=== PATIENT | female | born 1955 | race Caucasian/White ===

== ENCOUNTER 2022-02-15 04:08 | Emergency (ER) | payer MEDICARE, SELFPAY ==
[2022-02-15 04:08] VITALS: BP 150/88; PULSE 109; RESP 17; TEMP 37; O2SAT 97
[2022-02-15 04:09] VITALS: BP 150/88; TEMP 37; BMI 25.9
--- NOTE | 2022-02-15 04:18 | CT_ITS ---
STUDY: CT ABDOMEN AND PELVIS WITH CONTRAST REASON FOR EXAM: Female, 66 years old. RLQ pain RADIATION DOSAGE (If Supplied By Facility): CTDIvol = ( 12.49 ) mGy, DLP = ( 58460.31 ) mGycm TECHNIQUE: Transaxial 3.75 mm abdominal and delayed images were obtained from the dome of the diaphragm to the symphysis pubis without oral contrast. IV 100mL Isovue-370 was administered. Sagittal and coronal images were reconstructed. Individualized dose optimization techniques were used for this CT. COMPARISON: None. FINDINGS: Nonspecific mild compression of left basilar parenchyma. The visualized portions of the heart are within normal limits. Few millimeter low attenuation in the right and left hepatic lobes are too small to characterize without change on delayed imaging. Prominent proximal extrahepatic biliary ductal system of up to 1.1 cm tapering to normal size at the pancreas head level. No choledocholithiasis detected. Mild distention of gallbladder. Normal spleen. Normal pancreas. Normal bilateral adrenal glands. Moderate right hydronephrosis and hydroureter tapering to near-normal size along the distal ureter. There is wall prominence at the UVJ level. A calculus is not visualized. Punctate nonobstructing left inferior renal pole calculus. Normal visualized stomach. Normal small intestine. There are significant sigmoid and descending colonic diverticula consistent with diverticulosis. The appendix is visualized and appears normal. There is diffuse atherosclerotic calcification of the abdominal aorta, without a demonstrated aneurysm. Normal inferior vena cava. Normal retroperitoneum. Posterior right urinary bladder wall thickening up to 1.1 cm at the UVJ level. No evidence of ureterocele There is a pessary. Bilateral fallopian tube clips. There is a small umbilical hernia containing fat. There are diffuse degenerative changes of the visualized lumbar spine. Dextroscoliosis of the lower thoracic spine. Incompletely imaged thoracolumbar fusion. Grade 1 anterolisthesis L4 on L5. CT/Abdomen/Pelvis W IV Cont ONLY IMPRESSION: Moderate right hydronephrosis and hydroureter without obstructing ureteral calculus. There is wall thickening at the right UVJ level of the posterior right urinary bladder wall. Cystoscopy and possible tissue sampling recommended. Small nonobstructing left inferior renal pole calculus. Probable hepatic cyst, too small to characterize. Atherosclerosis, fat-containing umbilical hernia, colonic diverticulosis, degenerative and postsurgical changes as above. There is no appendicitis, colitis, diverticulitis, ascites, abscess, collection, perforation or obstruction. Electronically Signed: Estela Pollock MD at 6:50 EDT Reading Location ID and State: / , Service support ,
--- NOTE | 2022-02-15 04:19 | EDS_ITS ---
HPI History of Present Illness Chief Complaint: Abd Pain Informant: patient Narrative Narrative: Patient has had lower abdominal pain for about 5 hours. She states she woke up at about 11:00. She did not notice pain at first but then she noticed pain across her lower abdomen. It was both sides. But over the next 4 or so hours it moved toward the right lower quadrant. She had some nausea and diarrhea but no vomiting. No blood in the stool. She had some subjective fevers but no measured fever. No back or flank pain. She took Tylenol and it is feeling better. Her nausea is now gone. She had no urinary symptoms. Only abdominal surgery was tubal ligation years ago. PFSH PFSH Home Medications alendronate 70 mg PO DAILY 02/15/22 [History Last Taken Unknown] atorvastatin 10 mg DAILY 02/15/22 [History Last Taken Unknown] cephalexin 500 mg PO Q6 #40 cap 02/15/22 [Rx Last Taken Unknown] levothyroxine 88 mcg DAILY 02/15/22 [History Last Taken Unknown] Allergy/AdvReac Type Severity Reaction Status Date / Time No Known Allergies Allergy Verified 02/15/22 04:11 Social History Smoking Status: Never smoker ROS ROS ED Constitutional Constitutional ED: Reports subjective ENT ENT ED: Denies rhinorrhea or sore throat Cardiovascular Cardiovascular: Denies chest pain or palpitations Respiratory/Chest Respiratory/Chest: Denies cough or dyspnea Gastrointestinal Gastrointestinal: Reports abdominal pain, diarrhea and nausea Genitourinary Genitourinary ED: Denies dysuria or hematuria Musculoskeletal Musculoskeletal: Denies back pain or neck pain Integumentary Denies rash Neurologic Neurologic: Denies headache(s) or paresthesias Endocrine Endocrinology: Denies polydipsia or polyuria Allergic/Immunologic Allergic/Immunologic ED: Denies urticaria EXAM Physical Exam Const Vital Signs: 02/15/22 04:08 02/15/22 04:09 02/15/22 06:28 Temperature 98.6 F 98.6 F Temperature Source Temporal Temporal Pulse Rate 109 H 74 Respiratory Rate 17 17 Blood Pressure 150/88 H 150/88 H 125/73 H Blood Pressure Mean 108 108 90 Pulse Ox 97 98 Oxygen Delivery Method Room Air Room Air Positive well nourished and well developed General Appearance ED: well developed and NAD; Negative for cyanotic or diaphoretic HEENT Reports moist mucous membranes Eyes General Eye ED: Negative for pale conjunctiva or scleral icterus Neck no JVD Chest Wall inspection of chest normal Resp normal respiratory effort and clear to auscultation bilaterally Cardio regular rate, regular rhythm and no murmurs GI normal to inspection, nondistended, normoactive bowel sounds and non-distended GI Narrative: Minimal tenderness toward the right lower quadrant but no rebound or guarding. Palpation: soft Back/Spine no CVA tenderness Extremity normal to inspection General Extremety ED: Negative for edema or tenderness General Extremity: Negative for edema Neuro Sensorium / Orientation: alert Psych mental status grossly normal Skin no rashes or lesions noted MDM MDM MDM Narrative Medical decision making narrative: Patient's labs show normal CBC. Electrolytes liver function test are overall unremarkable. Glucose is minimally elevated. Urine was rather cloudy. It had positive nitrites. 100 leukocyte Estrace. Red cells. Had a smaller but still abnormal number of white cells and 3+ bacteria. Patient does admit that her urine has been a lot stronger especially in the morning recently but she does not have dysuria. She states she feels well now. She is not having any of the discomfort. Her CT scan showed some thickening of the bladder and moderate hydronephrosis on the right likely caused by this thickened area and delaying emptying. I explained these findings to the sampson ent. I explained that we will get her on antibiotics for possible UTI. I will send off a urine culture. But even if her symptoms completely resolved she needs to see urologist. She will likely need a cystoscopy and biopsies done. It is possible that this is an early bladder cancer and this needs to be followed up even if she has resolution of symptoms. Lab Data Attestation: I reviewed the patient's lab results. Labs: Laboratory Results - last 24 hr 02/15/22 02/15/22 02/15/22 04:12 04:12 04:42 WBC 9.5 RBC 4.56 Hgb 13.9 Hct 41.6 MCV 91.2 MCH 30.5 MCHC 33.4 RDW Std Deviation 41.7 RDW Coeff of Andrés 12.5 Plt Count 207 MPV 10.4 Immature Gran % (Auto) 0.300 Neut % (Auto) 86.6 H Lymph % (Auto) 7.1 L Hardin % (Auto) 5.6 Eos % (Auto) 0.1 Baso % (Auto) 0.3 Absolute Neuts (auto) 8.2 H Absolute Lymphs (auto) 0.67 L Nucleated RBC % 0 Sodium 138 Potassium 3.5 Chloride 105 Carbon Dioxide 28.0 Anion Gap 5 BUN 14 Creatinine 0.78 Estim Creat Clear Calc 45.78 Est GFR (MDRD) Af Amer 95 Est GFR (MDRD) Non-Af 78 BUN/Creatinine Ratio 17.9 Glucose 133 H Calcium 9.3 Total Bilirubin 1.00 AST 26 ALT 35 Alkaline Phosphatase 65 Total Protein 7.7 Albumin 4.3 Globulin 3.4 Albumin/Globulin Ratio 1.3 Urine Color Yellow Urine Clarity Sl. Cloudy Urine pH 6.0 Ur Specific Shubuta 1.015 Urine Protein Negative Urine Glucose (UA) Normal Urine Ketones 50 H Urine Occult Blood 150 H Urine Nitrite Positive H Urine Bilirubin Negative Urine Urobilinogen Normal Ur Leukocyte Esterase 100 H Urine RBC 10-25 SEEN Urine WBC 5-10 SEEN Ur Squamous Epith Cells 0-5 SEEN Urine Bacteria 3+ Urine Mucus 0 SEEN Radiography Diagnostic Testing: Clinical Impression(s) from Imaging Studies Abdomen/Pelvis CT 02/15/22 04:18 IMPRESSION: Moderate right hydronephrosis and hydroureter without obstructing ureteral calculus. There is wall thickening at the right UVJ level of the posterior right urinary bladder wall. Cystoscopy and possible tissue sampling recommended. Small nonobstructing left inferior renal pole calculus. Probable hepatic cyst, too small to characterize. Atherosclerosis, fat-containing umbilical hernia, colonic diverticulosis, degenerative and postsurgical changes as above. There is no appendicitis, colitis, diverticulitis, ascites, abscess, collection, perforation or obstruction. Electronically Signed: Estela Pollock MD at 6:50 EDT Reading Location ID and State: , Service support , Discharge Plan Triage Chief Complaint: Abd Pain ED Provider: Samm Moreira Dx/Rx/DC Orders Clinical Impression: Abdominal pain, Hydronephrosis, right, Bladder wall thickening, Acute UTI Instructions: ED Hematuria, ED CYSTITIS Female Adult Prescriptions: New cephalexin [cephalexin] 500 MG capsule 500 mg PO Q6 Qty: 40 RF: 0 No Action atorvastatin 10 mg tablet 10 mg DAILY RF: 0 alendronate 70 mg tablet 70 mg PO DAILY RF: 0 levothyroxine 88 mcg tablet 88 mcg DAILY RF: 0 Primary Care Provider: Yousif Ross Referrals: Yousif Ross MD [Primary Care Provider] - Sunita Gillespie MD [STAFF PHYSICIAN] - 3-5 Days Disposition Disposition: Home, Self Care
[2022-02-15 04:47] LABS: Absolute Lymphocyte Count 0.67 X10^3/uL (0.83-4.51); Absolute Neutrophil Count 8.2 X10^3/uL (2.0-7.7); Basophil# 0.03 X10^3/uL; Basophil% 0.3 % (0-1); Eosinophil# 0.01 X10^3/uL; Eosinophils% 0.1 % (0-5); Hematocrit 41.6 % (37-47); Hemoglobin 13.9 g/dL (12.0-15.0); Lymphocyte # 0.67 X10^3/ul (0.83-4.51); Lymphocyte % 7.1 % (19-41); Mean Corp Hgb Conc 33.4 g/dL (32-36); Mean Corpuscular Hgb 30.5 pg (27.0-32.0); Mean Corpuscular Volume 91.2 fL (81-99); Mean Platelet Vol. 10.4 fl (6.2-12.0); Monocyte# 0.53 X10^3/uL; Monocyte% 5.6 % (0-10); NRBC Flagged by Analyzer 0 % (0-5); Neutrophil # 8.18 X10^3/uL (2.7-7.7); Neutrophil % 86.6 % (47-70); Platelet Count 207 K/mm3 (150-450); RBC Distribution Width CV 12.5 % (11.6-14.6); RBC Distribution Width SD 41.7 fl (35.1-43.9); Red Blood Count 4.56 M/mm3 (4.2-5.4); White Blood Count 9.5 K/mm3 (4.4-11.0)
[2022-02-15 04:49] LABS: Color, Urine Yellow (Yellow); Glucose, Dipstick Normal (Normal); Ketone-Dipstick 50 mg/dl (Negative); Leukocyte Esterase-Dipstick 100 /ul (Negative); Nitrite-Dipstick Positive (Negative); Occult Blood-Urine 150 /ul (Negative); Protein-Dipstick Negative (Negative); Specific Gravity, Urine 1.015 (1.002-1.030); Urine Bilirubin Dipstick Negative (Negative); Urine Clarity Sl. Cloudy (Clear); Urine Urobilinogen Normal (Normal)
[2022-02-15 04:50] LABS: Mucous, Urine 0 SEEN /hpf (<or=2+)
[2022-02-15 05:02] LABS: ALB/GLOB Ratio 1.3 RATIO (0.9-2.4); AST(SGOT) 26 U/L (15-37); Alanine Aminotransfer ALT/SGPT 35 U/L (13-56); Albumin, Serum 4.3 g/dL (3.2-5.0); Alkaline Phosphatase 65 U/L (45-117); Anion Gap 5 (5-15); BUN 14 mg/dL (7-18); BUN/Creat Ratio 17.9 RATIO (10-20); Calcium,Total 9.3 mg/dL (8.5-10.1); Chloride 105 mmol/L (98-107); Creatinine, Serum 0.78 mg/dL (0.55-1.02); EST Glomerular Filtration Rate 78 mL/min (>60); Est Glom Filt Rate - Afr Amer 95 mL/min (>60); Estimated Creatinine Clearance 45.78 ml/min; Globulin 3.4 g/dL (2.2-4.2); Glucose 133 mg/dL (74-106); Potassium 3.5 mmol/L (3.5-5.1); Protein, Total 7.7 g/dL (6.4-8.2); Sodium Level 138 mmol/L (136-145)
[2022-02-15 05:11] LABS: Red Blood Cells-Urine 10-25 SEEN /hpf (0-5)
[2022-02-15 05:12] LABS: Bacteria 3+ /hpf (None Seen); Squamous Epithelial Cells - UA 0-5 SEEN /hpf (5-10); White Blood Cells 5-10 SEEN /hpf (0-5)
[2022-02-15 06:28] VITALS: BP 125/73; PULSE 74; RESP 17; O2SAT 98
[2022-02-15] MEDS: Cephalexin 250 MG Capsule 500 MG PO (07:15)
== END 2022-02-15 07:23 | disposition home or self-care (01) ==
PROVIDERS: Emergency Provider Emergency Medicine; PCP Family Medicine; Visit Provider Emergency Medicine
DX: N13.30 Unspecified hydronephrosis (principal); R10.30 Lower abdominal pain, unspecified; N39.0 Urinary tract infection, site not specified; Z79.899 Other long term (current) drug therapy
CPT/HCPCS: 74177; 80053; 81001; 85025; 87086; 87088; 87186; 96360; 96361; 99284; J7030; Q9967; A4216

== ENCOUNTER → 2022-03-15 | Outpatient (CLI) | payer MEDICARE, SELFPAY ==
--- NOTE | 2022-03-15 10:54 | NM_ITS ---
CLINICAL: Female, 66 years old. R HYDROURETERONEPHROSIS NUCLEAR RENAL SCAN without with IV Lasix TECHNIQUE: Following the intravenous administration of 10.2 mCi of Tc MAG3, immediate flow imaging, and static delayed nephrogram images of the kidneys were obtained. 20 mg IV Lasix given at 21 minutes. COMPARISON STUDIES : NM - None. CR - Not available for review at this time. CT - 02/15/2022 MR - Not available for review at this time. US - Not available for review at this time. FINDINGS: Initial imaging demonstrates symmetric flow to the bilateral kidneys. Split function measures 39% on the right and 61% on the left. Continued accumulation of isotope activity of the bilateral kidneys prior to IV Lasix with relatively flattened renogram curves on both sides, more conspicuous on the right than the left. However, following Lasix, there is normal, expected excretion with downward trending renogram curve. NM/Renal Scan w/ Pharm Intervent IMPRESSION: 1. Relative preservation of bilateral renal parenchymal function. Patulous but nonobstructive right kidney. Normal physiologic response to IV Lasix. Electronically Signed: Antwon Cárdenas MD ([place]) at 12:14 EDT ,
== END | disposition home or self-care (01) ==
LOC: NM 10:53
PROVIDERS: PCP Family Medicine; Referring Provider Urology; Visit Provider Urology
DX: N13.4 Hydroureter (principal)
CPT/HCPCS: 78708; A9562; J1940

== ENCOUNTER 2022-04-15 08:04 | Day surgery (SDC) | payer MEDICARE, BC, SELFPAY ==
[2022-04-15 08:36] VITALS: BP 146/71; PULSE 71; RESP 18; TEMP 36.1; O2SAT 99; BMI 24.3
[2022-04-15] MEDS: Lactated Ringers 1,000 ML 15 ML IV (08:44)
[2022-04-15] MEDS: Cefazolin 2 GM in 0.9% Normal Saline 100 ML IV (09:09)
--- NOTE | 2022-04-15 09:54 | DCINST_ITS ---
Discharge Instructions Diet Discharge Diet: No restrictions Activity Discharge Activity: Return to Normal Activity Dressing / Incision Call your doctor if you observe: Fever of 101 or Higher, Inability to urinate and Inability to have a bowel movement Follow Up Care Please Follow Up With: Sunita Gillespie MD When: Call office for appointment Test Results: Test results from this visit will be discussed in further detail at your follow- up appointment, if applicable. Discharge Plan Admission Attending Provider: Sunita Gillespie Primary Care Provider: Yousif Ross Discharge Orders/Prescriptions Prescriptions: New oxycodone-acetaminophen [Percocet] 5-325 mg tablet 1 tab PO Q8H PRN (Reason: pain) 2 Days Qty: 10 0RF Continued atorvastatin 10 mg tablet 10 mg PO QHS Label Comments: TAKE 1 TABLET BY MOUTH ONCE DAILY AT BEDTIME FOR CHOLESTEROL alendronate 70 mg tablet 70 mg PO QWEEK levothyroxine 88 mcg tablet 88 mcg PO QHS oxyquinoline-boric acid 0.025 % Gel 1 ea VAGINAL QMONTH cephalexin 500 mg capsule 500 mg PO BID Label Comments: TAKE 1 CAPSULE BY MOUTH EVERY 6 HOURS Referrals / Follow Up: Yousif Ross MD [Primary Care Provider] - Disposition Disposition (needs filled in before D/C Order can be placed): Home, Self Care
--- NOTE | 2022-04-15 09:58 | OP.PCM_ITS ---
Report of Operation Date of Procedure: 04/15/22 Pre-Operative Diagnosis: Right hydronephrosis, abnormal findings on imaging of genitourinary organs Post-Operative Diagnosis: Same Surgery/Procedure Performed:: Cystoscopy, right retrograde pyelogram, right ureteroscopy diagnostic Surgeon: Sunita Gillespie Type of Anesthesia: General Description of Procedure: The patient is a 66-year-old female who was found to have a hydronephrosis and possible thickening of the distal right ureter. She presents for direct visualization of the right collecting system. Informed consent has been obtained. The patient was taken to the operating room placed on the operating room table. Anesthesia monitored the head, neck, IV access and vital signs throughout the case. Once anesthesia was appropriate ministered, the patient was placed into dorsolithotomy position and was prepped and draped in usual sterile fashion. The cystoscope was inserted through the urethra under direct visualization and the mucosa in its entirety was visualized and found to be normal. An 8 [place] [employer] cone-tip catheter was used to gently cannulate the right ureteral orifice and contrast was injected in retrograde fashion under fluoroscopic visualization revealing no filling defects. The ureter however was tortuous. At this time an 0.035 Glidewire was inserted through the ureteral orifice and advanced into the renal pelvis without difficulty. A flexible ureteroscope was inserted over the Glidewire. The ureteroscope was only able to be advanced to distal ureter. At this time the semirigid ureteroscope was obtained and more proximal access was achieved. There were no mucosal abnormalities identified from the proximal ureter down to the bladder. At this time the ureteroscope was removed under direct visualization. The patient's bladder was emptied and the case was terminated. The patient was awakened and taken to the recovery room in good condition. There were no complications during this procedure. Grafts/Implants Used: None Complications None Admit VTE Documentation VTE Present on Admission: Yes VTE Mechan Device Prophylaxis: SCD's VTE Pharm Prophylaxis ordered?: No Reason prophylaxis not ordered:: Treatment Not Indicated
[2022-04-15 10:45] VITALS: BP 146/71; BP 91/60; PULSE 64; RESP 16; TEMP 36.2; O2SAT 93
[2022-04-15 11:00] VITALS: BP 120/73; BP 146/71; PULSE 69; RESP 16; O2SAT 96
[2022-04-15 11:15] VITALS: BP 116/85; BP 146/71; PULSE 66; RESP 16; TEMP 36.3; O2SAT 98
[2022-04-15 12:15] VITALS: BP 130/66; BP 146/71; PULSE 76; RESP 18; TEMP 36.3; O2SAT 95
== END 2022-04-15 12:25 | disposition home or self-care (01) ==
LOC: SDC 08:10 → AC 08:10
PROVIDERS: PCP Family Medicine; Referring Provider Urology; Visit Provider Urology
PROC: 0TJ98ZZ Inspection of Ureter, Via Natural or Artificial Opening Endoscopic (ICD-10-PCS; CPT 52352; principal; 2022-04-15 09:30)
DX: N13.30 Unspecified hydronephrosis (principal); N13.8 Other obstructive and reflux uropathy; N81.2 Incomplete uterovaginal prolapse; E78.5 Hyperlipidemia, unspecified; E07.9 Disorder of thyroid, unspecified; M19.90 Unspecified osteoarthritis, unspecified site; Z78.0 Asymptomatic menopausal state; Z87.891 Personal history of nicotine dependence; Z79.890 Hormone replacement therapy; Z79.899 Other long term (current) drug therapy
CPT/HCPCS: 52351; 00910; 76000; J7120; J2405

== ENCOUNTER → 2022-09-13 | Outpatient (CLI) | payer MEDICARE, BC, SELFPAY ==
--- NOTE | 2022-09-13 12:42 | US_ITS ---
STUDY: RENAL ULTRASOUND - COMPLETE REASON FOR EXAM: Female, 67 years old. Flank pain, fever TECHNIQUE: Ultrasound evaluation of the kidneys was performed with real-time and static huitron-scale imaging. Study limited due to overlying bowel gas COMPARISON: None. FINDINGS: RIGHT KIDNEY: Normal location of the right kidney, which is normal in size for age. The right kidney measures 8.5 x 5.2 x 3.9 cm. There is a normal cortex of the right kidney for age. The renal cortex measures 0.7 cm. There is no right renal mass or cyst. There are no right renal calculi. There is no demonstrated hydronephrosis, however, the study is limited and hydronephrosis could be present and overlooked by ultrasound DISTAL RIGHT URETER: There is non-visualization of the distal right ureter. There is no demonstrated right ureterovesical junction calculus. There is a visualized right ureteral jet. LEFT KIDNEY: Normal location of the left kidney, which is normal in size. The left kidney measures 9.5 x 6.0 x 4.2 cm. There is a normal cortex of the left kidney. The renal cortex measures 0.9 cm. There is no left renal mass or cyst. There are no left renal calculi. There is no left hydronephrosis. DISTAL LEFT URETER: There is non-visualization of the distal left ureter. There is no demonstrated left ureterovesical junction calculus. There is a visualized left ureteral jet. AORTA: There is no elongation or tortuosity of the abdominal aorta. I.V.C.: The IVC is patent. BLADDER: The bladder is sonographically normal with estimated capacity of 358 mL US/Kidney and Bladder IMPRESSION: No suspicious sonographic findings. However, study is limited and right-sided hydronephrosis cannot be excluded Electronically Signed: Billy Vasquez MD at 13:41 EST ,
== END | disposition home or self-care (01) ==
LOC: NM 12:40 → US 12:42
PROVIDERS: PCP Family Medicine; Referring Provider Urology; Visit Provider Urology
DX: N13.30 Unspecified hydronephrosis (principal)
CPT/HCPCS: 76770

== ENCOUNTER → 2022-10-25 | Outpatient (CLI) | payer MEDICARE, BC, SELFPAY ==
[2022-10-25 15:49] LABS: Anion Gap 7 (5-15); BUN 12 mg/dL (7-18); BUN/Creat Ratio 15.6 RATIO (10-20); Calcium,Total 9.9 mg/dL (8.5-10.1); Chloride 104 mmol/L (98-107); Creatinine, Serum 0.77 mg/dL (0.55-1.02); EST Glomerular Filtration Rate 80 mL/min (>60); Est Glom Filt Rate - Afr Amer 96 mL/min (>60); Glucose 98 mg/dL (74-106); Potassium 4.2 mmol/L (3.5-5.1); Sodium Level 141 mmol/L (136-145)
== END | disposition home or self-care (01) ==
LOC: MTLAB 11:37
PROVIDERS: PCP Family Medicine; Referring Provider Urology; Visit Provider Urology
DX: N13.30 Unspecified hydronephrosis (principal)
CPT/HCPCS: 36415; 80048

== ENCOUNTER → 2023-02-02 | Outpatient (CLI) | payer MEDICARE, BC, SELFPAY ==
--- NOTE | 2023-02-02 10:46 | US_ITS ---
STUDY: RENAL ULTRASOUND - COMPLETE REASON FOR EXAM: Female, 67 years old. Right-sided hydronephrosis. TECHNIQUE: Ultrasound evaluation of the kidneys was performed with real-time and static huitron-scale imaging. COMPARISON: Renal ultrasound, September 13, 2022. FINDINGS: RIGHT KIDNEY: Normal location of the right kidney, which is normal in size. The right kidney measures 9.8 cm. Prominent column of Enzo There is diffuse thinning of the renal cortex. The renal cortex measures 0.6 cm. There is a 2.3 x 2.4 x 2.0 cm simple cyst in the lower pole. There are no right renal calculi. There is moderate hydronephrosis of the right kidney. DISTAL RIGHT URETER: There is non-visualization of the distal right ureter. There is no demonstrated right ureterovesical junction calculus. There is a visualized right ureteral jet. LEFT KIDNEY: Normal location of the left kidney, which is normal in size. The left kidney measures 9.4 cm. There is a normal cortex of the left kidney. The renal cortex measures 0.9 cm. There is no left renal mass or cyst. There are no left renal calculi. There is no left hydronephrosis. DISTAL LEFT URETER: There is non-visualization of the distal left ureter. There is no demonstrated left ureterovesical junction calculus. There is a visualized left ureteral jet. BLADDER: The distended urinary bladder has a volume of 386 ml. . There is a normal wall thickness of the distended urinary bladder. There is no demonstrated mass within the urinary bladder. There are no demonstrated bladder calculi. US/Kidney and Bladder IMPRESSION: 1. Moderate right hydronephrosis. The right ureteral jet is noted. 2. Otherwise normal complete retroperitoneal ultrasound. Electronically Signed: Zev Wooten DO at 19:00 EDT Reading Location ID and State: [address] [place] [address] Tel [phone], Service support ,
== END | disposition home or self-care (01) ==
LOC: US 10:44
PROVIDERS: PCP Family Medicine; Referring Provider Urology; Visit Provider Urology
DX: N13.30 Unspecified hydronephrosis (principal)
CPT/HCPCS: 76770

== ENCOUNTER → 2023-02-08 | Outpatient (CLI) | payer MEDICARE, BC, SELFPAY ==
[2023-02-08 10:49] LABS: Anion Gap 4 (5-15); BUN 10 mg/dL (7-18); BUN/Creat Ratio 13.3 RATIO (10-20); Calcium,Total 9.6 mg/dL (8.5-10.1); Chloride 105 mmol/L (98-107); Creatinine, Serum 0.75 mg/dL (0.55-1.02); EST Glomerular Filtration Rate 81 mL/min (>60); Est Glom Filt Rate - Afr Amer 99 mL/min (>60); Glucose 113 mg/dL (74-106); Potassium 4.3 mmol/L (3.5-5.1); Sodium Level 138 mmol/L (136-145)
== END | disposition home or self-care (01) ==
LOC: MTLAB 08:43
PROVIDERS: PCP Family Medicine; Referring Provider Urology; Visit Provider Urology
DX: N13.30 Unspecified hydronephrosis (principal)
CPT/HCPCS: 36415; 80048

== ENCOUNTER → 2023-11-03 | Outpatient (CLI) | payer MEDICARE, BC, SELFPAY ==
--- NOTE | 2023-11-03 07:26 | US_ITS ---
STUDY: RENAL ULTRASOUND - COMPLETE REASON FOR EXAM: Female, 68 years old. HYDRONEPHROSIS TECHNIQUE: Ultrasound evaluation of the kidneys was performed with real-time and static huitron-scale imaging. COMPARISON: Comparison is made with prior study dated February 02, 2023. FINDINGS: RIGHT KIDNEY: Normal location of the right kidney, which is normal in size. The right kidney measures 9.6 cm x 3.5 cm x 3.8 cm. There is a normal cortex of the right kidney. The renal cortex measures 1.0 cm. There is a 2.2 cm x 2 cm x 1.1 cm renal cyst. There are no right renal calculi. Mild to moderate degree of right hydronephrosis. DISTAL RIGHT URETER: There is non-visualization of the distal right ureter. There is no demonstrated right ureterovesical junction calculus. There is a visualized right ureteral jet. LEFT KIDNEY: Normal location of the left kidney, which is normal in size. The left kidney measures 8.9 cm x 5.3 cm x 4.1 cm. There is a normal cortex of the left kidney. The renal cortex measures 1.4 cm. There is no left renal mass or cyst. There are no left renal calculi. There is no left hydronephrosis. DISTAL LEFT URETER: There is non-visualization of the distal left ureter. There is no demonstrated left ureterovesical junction calculus. There is a visualized left ureteral jet. BLADDER: The distended urinary bladder has a volume of 196 ml. There is a normal wall thickness of the distended urinary bladder. There is no demonstrated mass within the urinary bladder. There are no demonstrated bladder calculi. US/Kidney and Bladder IMPRESSION: Mild to moderate degree of right hydronephrosis. Stable right renal cyst. Electronically Signed: Daryn Iniguez MD at 15:31 EST ,
--- OUTSIDE RECORDS SUMMARY | 2023-11-03 07:31 | XMS RPT_ITS | CCD ---
Author Name Unknown Address [address] [place] [address] Organization [facility] Care Team Providers Care Research Computing Specialist Name Role Phone Dianne Ross MD Primary Care Provider DIANNE ROSS Referring Unavailab DIANNE Olivo Primary Care Unavailab DIANNE Olivo Primary Care Unavailab DIANNE Olivo Referring Unavailab DIANNE Olivo Attending DIANNE Garcia Primary Care Unavailab DIANNE Olivo Referring Unavailab le MALIK, KAROLINA Referring Unavailable DIANNE ROSS Primary Care Unavailab le MALIK, KAROLINA Referring Unavailable SHARON KAROLINA Attending Unavailable DIANNE ROSS Primary Care Unavailab le PODLOGAARTI ALONSO Attending DIANNE Sevilla Primary Care Unavailab le Medications Current Medications Medication Drug Class(es) Dates Sig (Normalized) Sig (Original) alendronic acid 70 mg oral tablet (20 sources) Bisphosphonate Start: 09-10-2021 End: 12-24-2023 take 1 tablet by mouth every week alendronate (FOSAMAX) 70 mg tablet Take 1 tablet by mouth one time a week. Take with a full glass of water, on an empty stomach; do NOT lie down for 30minutes. 12 tablet 1 06/27/2023 12/24/2023 Active Completed/Discontinued Medications Medication Drug Class(es) Dates Sig (Normalized) Sig (Original) atorvastatin 10 mg oral tablet (20 sources) HMG-CoA Reductase Inhibitor Start: 06-27-2023 take 1 tablet by mouth once daily atorvastatin (LIPITOR) 10 mg tablet Indications: Hyperlipidemia with target LDL less than 130 Take 1 tablet by mouth once daily. 90 tablet 1 06/27/2023 Active Problems Active Problems Problem Classification Problem Date Documented Date Episodic/Chronic Administrative/social admission (1 source) Advance directive discussed with patient; Translations: [Other specified counseling] Episodic Cardiac dysrhythmias (1 source) Finding related to awareness of heart beat; Translations: [Palpitations] Episodic Disorders of lipid metabolism (20 sources) Hyperlipidemia; Translations: [Hyperlipidemia, unspecified] Onset: 05-28-2011 09-04-2018 Chronic Immunizations and screening for infectious disease (3 sources) Vaccination needed; Translations: [Encounter for immunization] Episodic Menopausal disorders (1 source) Atrophic vaginitis; Translations: [Postmenopausal atrophic vaginitis] 06-21-2023 Chronic Osteoarthritis (18 sources) Degenerative joint disease of hand; Translations: [Unilateral primary osteoarthritis of first carpometacarpal joint, right hand] Onset: 09-04-2018 09-04-2018 Chronic Osteoporosis (19 sources) Osteoporosis; Translations: [Age-related osteoporosis without current pathological fracture] Onset: 05-09-2010 05-09-2010 Chronic Other bone disease and musculoskeletal deformities (18 sources) Idiopathic scoliosis of thoracic spine; Translations: [Other idiopathic scoliosis, thoracic region] 11-04-2015 Chronic Other diseases of bladder and urethra (1 source) Hypertrophy of bladder; Translations: [Other specified disorders of bladder] Chronic Other diseases of kidney and ureters (2 sources) Hydronephrosis; Translations: [Unspecified hydronephrosis] Episodic Other screening for suspected conditions (not mental disorders or infectious disease) (2 sources) Patient encounter status; Translations: [Encounter for screening mammogram for malignant neoplasm of breast] Onset: 08-16-2023 08-13-2022 Episodic Prolapse of female genital organs (1 source) Midline cystocele; Translations: [Cystocele, midline] 06-21-2023 Chronic Rehabilitation care; fitting of prostheses; and adjustment of devices (1 source) Patient encounter status; Translations: [Encounter for fitting and adjustment of other specified devices] 06-21-2023 Chronic Thyroid disorders (20 sources) Hypothyroidism; Translations: [Hypothyroidism, unspecified] Onset: 03-21-2006 11-04-2015 Chronic Past or Other Problems Problem Classification Problem Date Documented Da te Episodic/Chronic Diabetes mellitus without complication (19 sources) Impaired fasting glycemia; Translations: [Impaired fasting glucose] Onset: 06-17-2020 06-17-2020 Episodic Fluid and electrolyte disorders (2 sources) Hyperkalemia; Translations: [Hyperkalemia] Onset: 09-24-2022 Episodic Other diseases of kidney and ureters (1 source) Unspecified hydronephrosis; Translations: [Hydronephrosis, right] Onset: 09-22-2022 Episodic Other non-traumatic joint disorders (18 sources) Pain in right hip joint; Translations: [Pain in right hip] Onset: 01-08-2019 01-08-2019 Episodic Residual codes; unclassified (18 sources) Family history of malignant neoplasm of breast in first degree relative; Translations: [Family history of malignant neoplasm of breast] Onset: 11-23-2013 11-23-2013 Episodic Results Test Name Value Interpretation Reference Range Facil ity Vital Signs Date Time Vital Sign Value Performing Clinician Sharath alexander 06-21-2023 11:16-0400 Body weight 64.41 kg Karolina Malik APRN.[employer] Work Phone: [facility] 06-21-2023 11:16-0400 Diastolic blood pressure 70 mm[Hg] Karolina Malik APRN.[employer] Work Phone: [facility] 06-21-2023 11:16-0400 Systolic blood pressure 138 mm[Hg] Karolina Malik APRN.[employer] Work Phone: [facility] 09-22-2022 08:42-0500 Body weight 67.13 kg Dianne Ross MD Work Phone: [facility] 09-22-2022 08:42-0500 Diastolic blood pressure 80 mm[Hg] Dianne Ross MD Work Phone: [facility] 09-22-2022 08:42-0500 Heart rate 72 /min Dianne Ross MD Work Phone: [facility] 09-22-2022 08:42-0500 Respiratory rate 16 /min Dianne Ross MD Work Phone: [facility] 09-22-2022 08:42-0500 SaO2% (BldA) [Mass fraction] 97 % Dianne Ross MD Work Phone: [facility] 09-22-2022 08:42-0500 Systolic blood pressure 132 mm[Hg] Dianne Ross MD Work Phone: [facility] 03-17-2022 09:08-0400 Body temperature 98.6 [degF] Dianne Ross MD Work Phone: [facility] 03-17-2022 09:08-0400 Body weight 64.41 kg Dianne Ross MD Work Phone: [facility] 03-17-2022 09:08-0400 Diastolic blood pressure 80 mm[Hg] Dianne Ross MD Work Phone: [facility] 03-17-2022 09:08-0400 Heart rate 72 /min Dianne Ross MD Work Phone: [facility] 03-17-2022 09:08-0400 Respiratory rate 14 /min Dianne Ross MD Work Phone: [facility] 03-17-2022 09:08-0400 Systolic blood pressure 118 mm[Hg] Dianne Ross MD Work Phone: [facility] Encounters Encounter Date Encounter Type Care Provider Facility Start: 08-16-2023 End: 08-16-2023 ambulatory KAROLINA MALIK Facility:[facility] Start: 07-21-2023 Refill Dianne Ross MD Work Phone: [facility] Procedures Date Procedure Procedure Detail Performing Clinician Start: 06-21-2023 INFLUENZA VACCINE, P RSV FREE, AGE 65+ YR, HIGH DOSE, QUADRIVALENT (FLUZONE HIGH-DOSE) Karolina Malik APRN.[employer] Work Phone: Start: 09-22-2022 Lipid 1996 panel - S gideon or Plasma Karolina Malik APRN.[employer] Work Phone: Start: 08-13-2022 End: 08-13-2022 Rosy Shafer APRN. [employer] Work Phone: Start: 03-17-2022 PFIZER-YandexNTTenasiTech COVI D-19 VACCINE, AGE 12+ YR (HARVEY TOP) Dianne Ross MD Work Phone: Start: 03-17-2022 Adult depression scr eening assessment Dianne Ross MD Work Phone: Start: 08-13-2021 Mammography [facility] Provid er Start: 12-23-2020 Adult depression scr eening assessment [facility] Provider Start: 09-09-2020 Colonoscopy [facility] Provid er Plan of Treatment Date Care Activity Detail Author Start: 09-23-2031 Urine microalbumin profile [facility] Start: 09-09-2030 Colonoscopy COLONOSCOPY [facility] Start: 09-09-2030 COLORECTAL CANCER SCREENING COLORECTAL CANCER SCREENING [facility] Start: 09-22-2027 Lipid 1996 panel - S gideon or Plasma Lipid Screening [facility] Start: 09-22-2027 LIPID SCREEN LIPID SCREEN [facility] Start: 04-07-2026 LIPID SCREEN LIPID SCREEN [facility] Start: 09-22-2025 DIABETES SCREEN DIABETES SCREEN [facility] Start: 09-22-2025 Diabetes Screening Diabetes Screenin g [facility] Start: 03-12-2025 DIABETES SCREEN DIABETES SCREEN [facility] Start: 03-22-2024 Annual PCP Team Director Of Residence Life mark Disease Visit Annual PCP Team Chronic Disease Visit [facility] Start: 12-25-2023 DIABETES SCREEN DIABETES SCREEN [facility] Start: 09-22-2023 ANNUAL PCP TEAM CHILD CARE TEAM LEAD MARK DISEASE VISIT ANNUAL PCP TEAM CHRONIC DISEASE VISIT [facility] Start: 09-22-2023 COVID-19 VACCINE (5 - Booster for Pfizer series) COVID-19 VACCINE (5 - Booster for Pfizer series) [facility] Immunizations Immunization Date Immunization Notes Care Provider Fa delicia 06-21-2023 influenza (HD-IIV4) vaccine, age 65+ yr, high dose, quadrivalent, PF (FLUZONE HIGH-DOSE) Karolina Malik APRN.[facility] Work Phone: [facility] Work Phone: 06-08-2022 influenza, high-dose , quadrivalent vaccine (FLUZONE HIGH DOSE QUADRIVALENT) Tony Perez APRN.[employer], DNP Work Phone: [facility] Work Phone: 03-17-2022 COVID-19 vaccine, ag e 12+ yr (PFIZER-BIONTECH - HARVEY TOP) Dianne Ross MD Work Phone: [facility] 03-17-2022 pneumococcal (PCV20) vaccine, 20 valent (PREVNAR 20) Dianne Ross MD Work Phone: [facility] 03-17-2022 pneumococcal Conjuga te, unspecified formulation Dianne Ross MD Work Phone: [facility] Work Phone: 12-01-2021 zoster vaccine recombinant [facility] Provider [facility] 09-23-2021 tetanus toxoid, redu michelle diphtheria toxoid, and acellular pertussis vaccine, adsorbed [facility] Provider [facility] 09-23-2021 zoster vaccine recombinant [facility] 07-14-2021 COVID-19 vaccine, ag e 12+ yr (PFIZER-BIONTECH - PURPLE TOP) [facility] Provider [facility] Work Phone: 05-27-2021 influenza, high-dose , quadrivalent vaccine (FLUZONE HIGH DOSE QUADRIVALENT) [facility] Provider [facility] 12-05-2020 COVID-19 vaccine, ag e 12+ yr (PFIZER-BIONTECH - PURPLE TOP) f Provider [facility] 11-14-2020 COVID-19 vaccine, ag e 12+ yr (PFIZER-BIONTECH - PURPLE TOP) f Provider [facility] Work Phone: 06-02-2020 influenza, injectabl e, quadrivalent, contains preservative [facility] 06-08-2019 influenza, injectabl e, quadrivalent, contains preservative [facility] 06-03-2018 influenza, injectabl e, quadrivalent, contains preservative [facility] 05-18-2017 influenza, injectabl e, quadrivalent, contains preservative f [facility] Work Phone: 03-09-2017 pneumococcal polysaccharide vaccine, 23 valent [facility] Provider [facility] 03-09-2017 zoster vaccine, live [facility] Provider [facility] 07-05-2016 influenza, seasonal, injectable [facility] Provider [facility] Work Phone: 07-01-2015 influenza, injectabl e, quadrivalent, contains preservative f Provider [facility] Work Phone: 06-21-2014 influenza, seasonal, injectable [facility] Provider [facility] 06-19-2013 influenza virus vaccine, unspecified formulation [facility] Provider [facility] 05-28-2011 tetanus toxoid, redu michelle diphtheria toxoid, and acellular pertussis vaccine, adsorbed [facility] Provider [facility] 06-26-2009 influenza virus vaccine, unspecified formulation [facility] Provider [facility] Work Phone: 07-11-2008 influenza virus vaccine, unspecified formulation [facility] Provider [facility] 07-11-2007 influenza virus vaccine, unspecified formulation [facility] 06-17-1997 diphtheria and tetan us toxoids, adsorbed for pediatric use [facility] Work Phone: 12-03-1976 diphtheria and tetan us toxoids, adsorbed for pediatric use [facility] Work Phone: Payers Date Payer Category Payer Medicare [id number] 2020 Medicare MEDICARE MEDICAR E A AND B [id number] 2020-Present [phone] [address] [place] [id number] Medicare [id number] 2020 Medicare MEDICARE MEDICAR E A AND B [id number] 2020-Present [phone] [place] [address] Medicare [id number] 2020 Medicare [id number] Social History Date Type Detail Facility Start: 06-19-2013 End: 06-08-2022 Tobacco smoking status NHIS Ex-smoker [facility] Start: 09-16-2021 End: 06-21-2023 Alcohol intake Current drinker of alcohol (finding) [facility] Start: 12-23-2020 End: 03-17-2022 History SDOH Alcohol Frequency 98 [facility] Start: 03-12-2021 History SDOH Alcohol Comment rare, less than yearly [facility] Start: 12-23-2020 History SDOH Social Connections Phone 5 [facility] Start: 12-23-2020 History SDOH Social Connections Membership 2 [facility] Start: 12-23-2020 End: 03-17-2022 History SDOH Social Connections Living 3 [facility] Start: 12-23-2020 History SDOH Physica l Activity DPW 7 [facility] Start: 12-23-2020 History SDOH Stress 1 [facility] Start: 12-23-2020 History SDOH Financial 4 [facility] Start: 12-23-2020 Education 14 [facility] Start: 06-15-2007 End: 06-08-2022 Tobacco Comment quit smoking 1988 [facility] Start: 1955 Sex Assigned At Female C [facility] Start: 03-07-2022 End: 03-17-2022 Exposure to SARS-CoV-2 (event) Not sure [facility] History of tobacco use Current smoker [facility] History of tobacco use Cigarette Smoker C [facility] Start: 06-19-2013 End: 03-20-2023 Cigarettes smoked current (pack per day) - Reported 0.5 [facility] Start: 06-19-2013 End: 06-08-2022 Tobacco use and exposure Smokeless tobacco non-user [facility] Start: 09-22-2022 End: 03-20-2023 Social connection and isolation panel [facility] In a typical week, h ow many times do you talk on the telephone with family, friends, or neighbors? Patient refused [facility] Are you now , , , , never or living with a partner? [facility] Do you feel stress - tense, restless, nervous, or anxious, or unable to sleep at night because your mind is troubled all the time - these days [OSQ] Not at all [facility] (I/We) worried servando er (my/our) food would run out before (I/we) got money to buy more. Never true [facility] In the past 12 month s, was there a time when you were not able to pay the mortgage or rent on time? No [facility] Start: 08-06-2020 Sexual orientation Choose not to dis close [facility] Are you now , , , , never or living with a partner? Refused [facility] (I/We) worried wheth er (my/our) food would run out before (I/we) got money to buy more. DK or Refused [facility] Clinical Notes 11-23-2013 to 08-16-2023 Telephone Encounter - Cathryn Samuels LPN - 07/21/2023 1:49 PM ESTTelephone Encounter - Cathryn Samuels LPN - 06/27/2023 2:54 PM Karolina Gee APRN.[employer] - 06/21/2023 11:10 AM EDT Note Date & Type Note Facility 08-16-2023 Note HNO ID: [id number] Author: Flaquita Hare Mammo Tech Service: ? Author Type: Tree Surgeon Helper Type: Progress Notes Filed: 08/16/2023 7:36 AM Note Text: Radiology Service Progress Note PATIENT NAME: Jenny Pacheco DATE OF SERVICE: August 16, 2023 TIME: 7:08 AM PATIENT IDENTITY VERIFICATION COMPLETED USING TWO (2) IDENTIFIERS: Name and Date of confirmed by patient verbally. FALL SCREENING: Has the patient had 2 falls in the last year or 1 fall with injury or currently using an Ambulatory Assistive Device (Walker, Cane, Wheelchair, Crutches, etc.)? No PATIENT GENDER DATA: Female. status: : No status: NO. PATIENT RELEVANT IMPLANT DATA REVIEWED: Not Applicable RADIOLOGY DEPARTMENT: Mammography PERIPHERAL IV DATA: Not applicable SIGNED BY: Esteban Fermin August 16, 2023 7:08 AM [facility] 07-21-2023 Miscellaneous Notes [facility]-03/22/23 Labs-09/24/22 NOV-12/27/23 Cathryn Samuels LPN documented in this encounter [facility] 06-27-2023 Miscellaneous Notes Patient phones requesting refills as follows: Requested Prescriptions Pending Prescriptions Disp Refills alendronate (FOSAMAX) 70 mg tablet 12 tablet 1 Sig: Take 1 tablet by mouth one time a week. Take with a full glass of water, on an empty stomach; do NOT lie down for 30minutes. [facility]-03/22/23 Labs-09/24/22Jul-12/27/23 Please review and advise. Cathryn Samuels LPN documented in this encounter [facility] 06-27-2023 Miscellaneous Notes Patient phones requesting refills as follows: Requested Prescriptions Pending Prescriptions Disp Refills atorvastatin (LIPITOR) 10 mg tablet 90 tablet 1 Sig: Take 1 tablet by mouth once daily. [facility]-03/22/23 Labs-09/24/22Jul-12/27/23 Please review and advise. Cathryn Samuels LPN documented in this encounter [facility] 06-21-2023 Note HNO ID: [id number] Author: Karolina Malik APRN.[employer] Service: ? Author Type: Nurse Practitioner Type: Progress Notes Filed: 06/21/2023 11:52 AM Note Text: Director Of Student Life offered: Patient declines. Jenny Pacheco is a 67 year old who presents today for pessary insertion/cleaning. She wears a size 4 ring with knob pessary. She returns today with no complaints. She has not had problems with the pessary. She has not had vaginal discharge. She has not had vaginal bleeding. She removes and cleans using Trimo-gastelum for insertion every 2 months. Using vaginal hyaluronic acid suppositories twice a week. EXAM: pleasant, well developed, well nourished, in no apparent distress Pelvic: Bartholin's, urethra and Jones's glands were normal. The size 4 ring with knob pessary. pessary was removed. Vaginal exam indicated no erythema, no ulcerations, and no vaginal discharge. The pessary was cleaned and reinserted without difficulty using Trimo-gastelum ASSESSMENT/PLAN: 1. Pessary maintenance - ICD9: V53.99, ICD10: Z46.89 (primary diagnosis) The pessary was cleaned and reinserted without difficulty using Trimo-gastelum 2. Cystocele, midline - ICD9: 618.01, ICD10: N81.11 3. Postmenopausal atrophic vaginitis - ICD9: 627.3, ICD10: N95.2 - continue vaginal hyaluronic acid suppositories twice a week. 4. Need for influenza vaccination - ICD9: V04.81, ICD10: Z23 - INFLUENZA VACCINE, PRSV FREE, AGE 65+ YR, HIGH DOSE, QUADRIVALENT (FLUZONE HIGH-DOSE) Follow-up one year and as needed. Karolina Malik APRN.MAK I spent a total of 20 minutes on the date of the service which included preparing to see the patient, [id number] patient care, completing clinical documentation, obtaining and/or reviewing separately obtained history, performing a medically appropriate examination, and counseling and educating the patient/family/caregiver. [facility] 06-21-2023 History of Presen t illness Narrative Director Of Student Life offered: Patient declines. Jenny Pacheco is a 67 year old who presents today for pessary insertion/cleaning. She wears a size 4 ring with knob pessary. She returns today with no complaints. She has not had problems with the pessary. She has not had vaginal discharge. She has not had vaginal bleeding. She removes and cleans using Trimo-gastelum for insertion every 2 months. Using vaginal hyaluronic acid suppositories twice a week. EXAM: pleasant, well developed, well nourished, in no apparent distress Pelvic: Bartholin's, urethra and Jones's glands were normal. The size 4 ring with knob pessary. pessary was removed. Vaginal exam indicated no erythema, no ulcerations, and no vaginal discharge. The pessary was cleaned and reinserted without difficulty using Trimo-gastelum ASSESSMENT/PLAN: 1. Pessary maintenance - ICD9: V53.99, ICD10: Z46.89 (primary diagnosis) The pessary was cleaned and reinserted without difficulty using Trimo-gastelum 2. Cystocele, midline - ICD9: 618.01, ICD10: N81.11 3. Postmenopausal atrophic vaginitis - ICD9: 627.3, ICD10: N95.2 - continue vaginal hyaluronic acid suppositories twice a week. 4. Need for influenza vaccination - ICD9: V04.81, ICD10: Z23 - INFLUENZA VACCINE, PRSV FREE, AGE 65+ YR, HIGH DOSE, QUADRIVALENT (FLUZONE HIGH-DOSE) Follow-up one year and as needed. Karolina Malik APRN.CNP I spent a total of 20 minutes on the date of the service which included preparing to see the patient, [id number] patient care, completing clinical documentation, obtaining and/or reviewing separately obtained history, performing a medically appropriate examination, and counseling and educating the patient/family/caregiver. documented in this encounter [facility] 03-22-2023 Note HNO ID: [id number] Author: Aarti Shafer APRN.CNP Service: ? Author Type: Nurse Practitioner Type: Progress Notes Filed: 03/22/2023 9:30 AM Note Text: 03/22/2023 Patient presents with: Follow Up: 6 month SUBJECTIVE: This is a 67 year old that is here today for Above Complaints. Since last office visit has been in good health without ER visits or hospitalizations. HYPOTHYROIDISM: taking synthroid as prescribed without side effects HYPERLIPIDEMIA: Patient is taking medications: Yes. Patient is watching diet: Yes. Patient denies myalgias: Yes. Patient denies gi upset: Yes Following with Dr. Gillespie for hx of hydronephrosis. Lat office visit in February. Per patient paln is for US in one year. Osteoporosis:taking fosamax as prescribed without side effects Was dizzy for three days last week. Seemed to be made worse when bending over. Feels fine now. Denies recent cold, visual doyle's, slurred speech, facial drooping, lightheadedness, syncope, extremity numbness, tingling, weakness, SOB, dyspnea, chest pain, palpitations, hematochezia or melana. PAST MEDICAL HISTORY Diagnosis Date Arthritis Degenerative arthritis of thumb, right 09/04/2018 Disabling back pain 11/23/2013 Diverticulosis of colon (without mention of hemorrhage) Family history of breast cancer in sister 11/23/2013 History of transfusion Hyperlipidemia 05/28/2011 Hyperparathyroidism (HCC) 08/20/2010 Multinodular goiter 11/23/2013 Osteopenia Osteoporosis 05/09/2010 Other kyphoscoliosis and scoliosis Pessary maintenance Karolina Malik Unspecified hypothyroidism Vitamin D deficiency 05/12/2010 ALLERGIES Patient has no known allergies. MEDICATIONS Current Outpatient Medications Medication Sig levothyroxine (SYNTHROID) 88 mcg tablet Take 1 tablet by mouth once daily. Take on empty stomach. alendronate (FOSAMAX) 70 mg tablet Take 1 tablet by mouth one time a week. Take with a full glass of water, on an empty stomach; do NOT lie down for 30minutes. atorvastatin (LIPITOR) 10 mg tablet Take 1 tablet by mouth once daily. Oxyquinoline-Na Lauryl Sulfate (TRIMO-GASTELUM JELLY) 0.025-0.01 % gel Use 1 Applicatorful vaginally two times a week. as needed or for insertion of pessary CYANOCOBALAMIN, VITAMIN B-12, (VITAMIN B-12 ORAL) Take 1 tablet by mouth once daily. Calcium Carb-Cholecalciferol (CALCIUM 600 WITH VITAMIN D3) 600 (1,500)-200 mg-unit ORAL Tab Take one(1) tablet twice daily. OTC NUTRITIONAL SUPPLEMENT Multi-vitamin, Take one(1) tablet daily. No current facility-administered medications for this visit. Medications and allergies reviewed by this provider. SOCIAL HISTORY Social History Tobacco Use Smoking status: Former Packs/day: 0.50 Years: 20.00 Total pack years: 10.00 Types: Cigarettes Smokeless tobacco: Never Tobacco comments: quit smoking 1988 Vaping Use Vaping Use: Never used Substance Use Topics Alcohol use: Yes Comment: rare, less than yearly Drug use: Never REVIEW OF SYSTEMS All other reviewed and negative other than HPI. OBJECTIVE: BP 104/70 Pulse 75 Resp 16 Wt 64.1 kg (141 lb 6.4 oz) LMP 02/23/2006 SpO2 97% BMI 25.25 kg/m? . Vital signs reviewed by this provider. APPEARANCE Well appearing, alert, in no acute distress, well-hydrated, well nourished. EYES PERRLA, conjunctiva and sclera normal. EARS External ears normal, canals clear NECK Supple, no adenopathy; thyroid symmetric, normal size, no bruits HEART RRR with normal S1 and S2, no murmurs, no gallops, no JVD appreciated LUNG clear to auscultation. No wheezes, rhonchi or rales EXTREMITIES Extremities normal, No deformities, No skin discoloration, and No edema NEURO Awake, alert and oriented x 3, Cranial nerves II-XII grossly intact, Reflexes symmetrical, Normal gait, No involuntary motions., and negative findings: speech normal, mental status intact, Romberg negative, muscle tone normal, muscle strength normal SKIN Skin color, texture, turgor normal, no suspicious rashes or lesions to exposed skin ADVANCE DIRECTIVE DISCUSSION due on 09/05/2022 COVID-19 VACCINE(5 - Pfizer series) due on 09/22/2023 INFLUENZA(1) due on 05/06/2023 MAMMOGRAM due on 08/13/2023 ANNUAL PCP TEAM CHRONIC DISEASE VISIT due on 09/22/2023 DIABETES SCREEN due on 09/22/2025 LIPID SCREEN due on 09/22/2027 COLORECTAL CANCER SCREENING due on 09/09/2030 DTAP,TDAP,TD(5 - Td or Tdap) due on 09/23/2031 BONE DENSITY Completed DEPRESSION ASSESSMENT Completed HEPATITIS C SCREENING Completed SHINGRIX VACCINE Completed PNEUMOCOCCAL: 65+ Completed PAP TESTING Discontinued Component Latest Ref Rng AND Units 09/22/2022 Protein, Total 6.3 - 8.0 g/dL 7.4 Albumin 3.9 - 4.9 g/dL 4.7 Calcium 8.5 - 10.2 mg/dL 10.3 (H) Bilirubin, Total 0.2 - 1.3 mg/dL 0.5 Alkaline Phosphatase 34 - 123 U/L 60 AST 13 - 35 U/L 31 ALT 7 - 38 U/L 27 Glucose 74 - 99 mg/dL 102 (H) BUN 7 - 21 mg/dL 9 Creatinine 0.58 - 0.96 (more content not included)... [facility] 12-27-2022 Miscellaneous Notes Patient has been identified by name and date of : Yes Requested Prescriptions Pending Prescriptions Disp Refills atorvastatin (LIPITOR) 10 mg tablet 90 tablet 1 Sig: Take 1 tablet by mouth once daily. RX INSTRUCTIONS: Patient aware RX will be sent to pharmacy. No need to notify patient. Patient last office visit: 09/22/22 Patient next office visit: 03/22/23 Jessica Yee MA documented in this encounter [facility] 09-23-2022 Miscellaneous Notes Phoned patient and updated her with results and recommendations. Patient voiced understanding. Cholesterol is in good range and much improved from 2 years ago. Potassium level is mildly elevated which is possibly a lab error. Recommend rechecking level in the next couple of days. Other labs normal. documented in this encounter [facility] 09-22-2022 Note HNO ID: [id number] Author: Dianne Ross MD Service: ? Author Type: Physician Type: Progress Notes Filed: 09/22/2022 9:20 AM Note Text: Chief Complaint Patient presents with: Follow Up: 6 month HPI Jenny Pacheco is a 67 year old female who presents here today for Above Complaints. Patient notes that when she lies down at night she is more aware of her heart beating. Denies palpitations, chest pain, SOB, LE edema, orthopnea. Just wanted to make us aware. Still following up with Dr. Gillespie for hydronophrosis. Normal cystoscopy, right pyleogram and ureteroscopy in April. US last week showed no hydronephrosis, but noted study was limited. Denies change in urinary symptoms or flank pain. Has f/u scheduled with urology. Taking statin, synthroid, and fosamax as prescribed without side effects. Due for repeat labs. PHQ-2 / Depression screen He in the past two weeks denies having felt down, depressed, hopeless or with little interest or pleasure in doing things. Past medical history, appointments, medications, allergies reviewed. Previous Medical History PAST MEDICAL HISTORY Diagnosis Date Arthritis Degenerative arthritis of thumb, right 09/04/2018 Disabling back pain 11/23/2013 Diverticulosis of colon (without mention of hemorrhage) Family history of breast cancer in sister 11/23/2013 History of transfusion Hyperlipidemia 05/28/2011 Hyperparathyroidism (HCC) 08/20/2010 Multinodular goiter 11/23/2013 Osteopenia Osteoporosis 05/09/2010 Other kyphoscoliosis and scoliosis Pessary maintenance Karolina Malik Unspecified hypothyroidism Vitamin D deficiency 05/12/2010 Previous Surgical History PAST SURGICAL HISTORY Procedure Laterality Date BACK SURGERY HX 1969 osorio nubia placement-scoliosis COLONOSCOPY FLX DX W/COLLJ SPEC WHEN PFRMD 07/07/2010 Colonoscopy COLONOSCOPY SCRN NOT HIGH RISK 09/09/2020 10 yr interval EYE SURGERY HX FNA WITH IMAGING 06/28/2011 U/S FNA right thyroid nodule-benign LIG/TRNSXJ FLP TUBE ABDL/VAG APPR UNI/BI Tubal ligation PAST SURGICAL HISTORY OF Dental TRANSFUSION BLOOD/BLOOD COMPONENTS 1969 Family History FAMILY HISTORY Problem Relation Age of Onset Hypertension Mother Diabetes Mother DM II other (Parkinson's Disease) Father Diabetes Sister type 1 DM Hypertension Sister Cancer Sister Throat (vocal cords) Breast Cancer Sister 58 BRCA negative Alcohol/Drug Brother Stroke Maternal Grandmother Lung Cancer Maternal Grandfather Lung Cancer Paternal Grandfather No Known Problems Daughter No Known Problems Daughter No Known Problems Daughter Cancer Maternal Aunt unsure what kind Patient Allergies ALLERGIES No Known Allergies Current Medications Current Outpatient Medications on File Prior to Visit Medication Sig alendronate (FOSAMAX) 70 mg tablet Take 1 tablet by mouth one time a week. Take with a full glass of water, on an empty stomach; do NOT lie down for 30minutes. atorvastatin (LIPITOR) 10 mg tablet Take 1 tablet by mouth once daily. Oxyquinoline-Na Lauryl Sulfate (TRIMO-GASTELUM JELLY) 0.025-0.01 % gel Use 1 Applicatorful vaginally two times a week. as needed or for insertion of pessary levothyroxine (SYNTHROID) 88 mcg tablet Take 1 tablet by mouth once daily. Take on empty stomach. CYANOCOBALAMIN, VITAMIN B-12, (VITAMIN B-12 ORAL) Take 1 tablet by mouth once daily. Calcium Carb-Cholecalciferol (CALCIUM 600 WITH VITAMIN D3) 600 (1,500)-200 mg-unit ORAL Tab Take one(1) tablet twice daily. OTC NUTRITIONAL SUPPLEMENT Multi-vitamin, Take one(1) tablet daily. No current facility-administered medications on file prior to visit. Social History Social History Tobacco Use Smoking status: Former Packs/day: 0.50 Years: 20.00 Pack years: 10.00 Types: Cigarettes Smokeless tobacco: Never Tobacco comments: quit smoking 1988 Vaping Use Vaping Use: Never used Substance Use Topics Alcohol use: Yes Comment: rare, less than yearly Drug use: Never Review of Symptoms REVIEW OF SYSTEMS GENERAL: No weight loss, malaise or fevers RESPIRATORY: Negative for cough, hemoptysis, wheezing, COPD, dyspnea or shortness of breath CARDIOVASCULAR: Negative for chest pain, leg swelling, hypertension, CHF or palpitations GI: No nausea, vomiting, or diarrhea SKIN: Negative for lesions, rash, and itching EXAM: BP 132/80 Pulse 72 Resp 16 Wt 67.1 kg (148 lb) LMP 02/23/2006 SpO2 97% BMI 26.43 kg/m? General Appearance: Well appearing, alert, in no acute distress, well-hydrated, well nourished.. Skin: Skin color, texture, turgor normal, no suspicious rashes or lesions. Lungs: Lungs clear to auscultation. No wheezing, rhonchi, rales.. Heart: RRR without murmur, gallop, or rubs. No ectopy. Abdomen: Normal abdominal exam, Abdomen soft, non-tender. Bowel sounds normal. No masses, organomegaly. Extremities: No deformities, edema, skin discoloration, c (more content not included)... [facility] 09-22-2022 History of Presen t illness Narrative Chief Complaint Patient presents with: Follow Up: 6 month HPI Jenny Pacheco is a 67 year old female who presents here today for Above Complaints. Patient notes that when she lies down at night she is more aware of her heart beating. Denies palpitations, chest pain, SOB, LE edema, orthopnea. Just wanted to make us aware. Still following up with Dr. Gillespie for hydronophrosis. Normal cystoscopy, right pyleogram and ureteroscopy in April. US last week showed no hydronephrosis, but noted study was limited. Denies change in urinary symptoms or flank pain. Has f/u scheduled with urology. Taking statin, synthroid, and fosamax as prescribed without side effects. Due for repeat labs. PHQ-2 / Depression screen He in the past two weeks denies having felt down, depressed, hopeless or with little interest or pleasure in doing things. Past medical history, appointments, medications, allergies reviewed. Previous Medical History PAST MEDICAL HISTORY Diagnosis Date Arthritis Degenerative arthritis of thumb, right 09/04/2018 Disabling back pain 11/23/2013 Diverticulosis of colon (without mention of hemorrhage) Family history of breast cancer in sister 11/23/2013 History of transfusion Hyperlipidemia 05/28/2011 Hyperparathyroidism (HCC) 08/20/2010 Multinodular goiter 11/23/2013 Osteopenia Osteoporosis 05/09/2010 Other kyphoscoliosis and scoliosis Pessary maintenance Karolina Malik Unspecified hypothyroidism Vitamin D deficiency 05/12/2010 Previous Surgical History PAST SURGICAL HISTORY Procedure Laterality Date BACK SURGERY HX 1969 osorio nubia placement-scoliosis COLONOSCOPY FLX DX W/COLLJ SPEC WHEN PFRMD 07/07/2010 Colonoscopy COLONOSCOPY SCRN NOT HIGH RISK 09/09/2020 10 yr interval EYE SURGERY HX FNA WITH IMAGING 06/28/2011 U/S FNA right thyroid nodule-benign LIG/TRNSXJ FLP TUBE ABDL/VAG APPR UNI/BI Tubal ligation PAST SURGICAL HISTORY OF Dental TRANSFUSION BLOOD/BLOOD COMPONENTS 1969 Family History FAMILY HISTORY Problem Relation Age of Onset Hypertension Mother Diabetes Mother DM II other (Parkinson's Disease) Father Diabetes Sister type 1 DM Hypertension Sister Cancer Sister Throat (vocal cords) Breast Cancer Sister 58 BRCA negative Alcohol/Drug Brother Stroke Maternal Grandmother Lung Cancer Maternal Grandfather Lung Cancer Paternal Grandfather No Known Problems Daughter No Known Problems Daughter No Known Problems Daughter Cancer Maternal Aunt unsure what kind Patient Allergies ALLERGIES No Known Allergies Current Medications Current Outpatient Medications on File Prior to Visit Medication Sig alendronate (FOSAMAX) 70 mg tablet Take 1 tablet by mouth one time a week. Take with a full glass of water, on an empty stomach; do NOT lie down for 30minutes. atorvastatin (LIPITOR) 10 mg tablet Take 1 tablet by mouth once daily. Oxyquinoline-Na Lauryl Sulfate (TRIMO-GASTELUM JELLY) 0.025-0.01 % gel Use 1 Applicatorful vaginally two times a week. as needed or for insertion of pessary levothyroxine (SYNTHROID) 88 mcg tablet Take 1 tablet by mouth once daily. Take on empty stomach. CYANOCOBALAMIN, VITAMIN B-12, (VITAMIN B-12 ORAL) Take 1 tablet by mouth once daily. Calcium Carb-Cholecalciferol (CALCIUM 600 WITH VITAMIN D3) 600 (1,500)-200 mg-unit ORAL Tab Take one(1) tablet twice daily. OTC NUTRITIONAL SUPPLEMENT Multi-vitamin, Take one(1) tablet daily. No current facility-administered medications on file prior to visit. Social History Social History Tobacco Use Smoking status: Former Packs/day: 0.50 Years: 20.00 Pack years: 10.00 Types: Cigarettes Smokeless tobacco: Never Tobacco comments: quit smoking 1988 Vaping Use Vaping Use: Never used Substance Use Topics Alcohol use: Yes Comment: rare, less than yearly Drug use: Never Review of Symptoms REVIEW OF SYSTEMS GENERAL: No weight loss, malaise or fevers RESPIRATORY: Negative for cough, hemoptysis, wheezing, COPD, dyspnea or shortness of breath CARDIOVASCULAR: Negative for chest pain, leg swelling, hypertension, CHF or palpitations GI: No nausea, vomiting, or diarrhea SKIN: Negative for lesions, rash, and itching EXAM: BP 132/80 Pulse 72 Resp 16 Wt 67.1 kg (148 lb) LMP 02/23/2006 SpO2 97% BMI 26.43 kg/m General Appearance: Well appearing, alert, in no acute distress, well-hydrated, well nourished.. Skin: Skin color, texture, turgor normal, no suspicious rashes or lesions. Lungs: Lungs clear to auscultation. No wheezing, rhonchi, rales.. Heart: RRR without murmur, gallop, or rubs. No ectopy. Abdomen: Normal abdominal exam, Abdomen soft, non-tender. Bowel sounds normal. No masses, organomegaly. Extremities: No deformities, edema, skin discoloration, clubbing or cyanosis. Good capillary refill. . Health Maintenance List ADVANCE DIRECTIVE DISCUSSION due on 09/05/2022 DEPRESSION ASSESSMENT Never done COVID-19 VACCINE(5 - Booster for Pfizer series) due on 09/22/2023 ANNUAL PCP TEAM CHRONIC DISEASE VISIT due on 03/17/2023 MAMMOGRAM due on 08/13/2023 DIABETES SCREEN due on 03/12/2025 LIPID SCREEN due on 04/07/2026 COLORECTAL CANCER SCREENING due on 09/09/2030 DTAP,TDAP,TD(5 - Td or Tdap) due on 09/23/2031 BONE DENSITY Completed INFLUENZA Completed HEPATITIS C SCREENING Completed SHINGRIX VACCINE Completed PNEUMOCOCCAL: 65+ Completed Data reviewed Component Latest Ref Rng & Units 04/07/2021 03/12/2022 Protein, Total 6.3 - 8.0 g/dL 7.3 Albumin 3.9 - 4.9 g/dL 4.8 Calcium 8.5 - 10.2 mg/dL 10.0 Bilirubin, Total 0.2 - 1.3 mg/dL 0.6 Alkaline Phosphatase 34 - 123 U/L 65 AST 13 - 35 U/L 26 ALT 7 - 38 U/L 23 Glucose 74 - 99 mg/dL 107 (H) BUN 7 - 21 mg/dL 13 Creatinine 0.58 - 0.96 mg/dL 0.68 Sodium 136 - 144 mmol/L 139 Potassium 3.7 - 5.1 mmol/L 4.4 Chloride 97 - 105 mmol/L 101 CO2 22 - 30 mmol/L 27 Anion Gap 9 - 18 mmol/L 11 eGFR >=60 mL/min/1.73m 96 WBC 3.70 - 11.00 k/uL 6.41 RBC 3.90 - 5.20 m/uL 4.64 Hemoglobin 11.5 - 15.5 g/dL 14.0 Hematocrit 36.0 - 46.0 % 43.0 MCV 80.0 - 100.0 fL 92.7 MCH 26.0 - 34.0 pg 30.2 MCHC 30.5 - 36.0 g/dL 32.6 RDW-CV 11.5 - 15.0 % 12.5 Platelet Count 150 - 400 k/uL 257 MPV 9.0 - 12.7 fL 10.8 Absolute nRBC <0.01 k/uL <0.01 Cholesterol, Total <200 mg/dL 165 Triglyceride <150 mg/dL 120 HDL Cholesterol >39 mg/dL 47 LDL Cholesterol <100 mg/dL 94 Non HDL Cholesterol <130 mg/dL 118 Fasting Time hrs 15 VLDL Cholesterol <30 mg/dL 24 TC:HDL Ratio <5.10 3.51 LDL:HDL Ratio <2.54 2.00 TSH 0.270 - 4.200 mIU/L 1.720 Vitamin D 25 Hydroxy 31.0 - 80.0 ng/mL 44.6 Component Latest Ref Rng & Units 12/24/2020 Hemoglobin A1C 4.3 - 5.6 % 5.5 Estimated Average Glucose mg/dL 111 ASSESSMENT/PLAN: 1. Acquired hypothyroidism - ICD9: 244.9, ICD10: E03.9 (primary diagnosis) - Instructed patient on importance of taking on an empty stomach either first thing in the morning or at bedtime. - continue current dose of Synthroid 0.088 mg Stable - Behavioral intervention 2. Hyperlipidemia with target LDL less than 130 - ICD9: 272.4, ICD10: E78.5 - to be determined upon return of lab results - Continue current medication. - Encouraged following a low fat, low cholesterol diet. - Discussed the benefits of regular aerobic exercise and weight loss. - COMP METABOLIC PANEL - LIPID PANEL, NONFASTING 3. Age-related osteoporosis without current pathological fracture - ICD9: 733.01, ICD10: M81.0 - continue tx with alendronate (Fosamax) - Reviewed the need for Calcium and Vitamin D supplements and weight bearing exercise as tolerated 4. Impaired fasting glucose - ICD9: 790.21, ICD10: R73.01 A1c normal on last check. Will obtain CMP today. 5. Hydronephrosis, right - ICD9: 591, ICD10: N13.30 Recent studies normal. Check renal function. F/u with urology as scheduled. - COMP METABOLIC PANEL 6. Awareness of heart beat - ICD9: 785.1, ICD10: R00.2 Normal exam today. Discussed with patient how to check HR at home using her pulse. Call with tachycardia or palpitations. Dianne Ross MD documented in this encounter [facility] 08-16-2022 Miscellaneous Notes Patient returned call and updated with results and recommendation. Patient voiced understanding. TC to patient, message left to call back for update and ask for a triage nurse. Marion Magdaleno LPN Please call patient and let her know her mammogram shows there is no mammographic evidence of malignancy. A 1 year screening mammogram is recommended. Thanks, Aarti Shafer APRN.[employer] documented in this encounter [facility] 08-15-2022 Miscellaneous Notes August 15, 2022 PID: [id number] Jenny Pacheco [address] [place] [address] Dear Ms. Pacheco, We are pleased to inform you that the results of your recent breast imaging exam on 08/13/2022 are normal. Early detection of cancer is very important. We also understand recommendations regarding breast cancer screening are controversial. Please discuss with your primary care provider which strategy is best for you and whether a mammogram is right for you. Your imaging studies and report will be kept on file at [facility] as part of your permanent medical record and are available for your continuing care. Thank you for allowing us to help in meeting your health care needs. Sincerely, Dr. Ambriz Interpreting Radiologist [facility] (Normal over 40) documented in this encounter [facility] 08-13-2022 History of Presen t illness Narrative Radiology Service Progress Note PATIENT NAME: Jenny Pacheco DATE OF SERVICE: August 13, 2022 TIME: 7:28 AM PATIENT IDENTITY VERIFICATION COMPLETED USING TWO (2) IDENTIFIERS: Name and Date of confirmed by patient verbally. FALL SCREENING: Has the patient had 2 falls in the last year or 1 fall with injury or currently using an Ambulatory Assistive Device (Walker, Cane, Wheelchair, Crutches, etc.)? No PATIENT GENDER DATA: Female. status: : No status: NO. PATIENT RELEVANT IMPLANT DATA REVIEWED: Not Applicable RADIOLOGY DEPARTMENT: Mammography PERIPHERAL IV DATA: Not applicable SIGNED BY: RT Danial(R) August 13, 2022 7:28 AM documented in this encounter [facility] 08-11-2022 Miscellaneous Notes Patient last visit with PCP 03/17/22 Follow up appointment scheduled 09/22/22 Mirlande Velazquez Ma documented in this encounter [facility] 06-29-2022 Miscellaneous Notes RX INSTRUCTIONS: Patient aware RX will be sent to pharmacy. No need to notify patient. Last OV: 03/17/22 with CB Last refill: 03/26/22 With 90 and 0 refills Follow up: 09/22/22-6 month f/u with PCP Alexandrea Shaffer MA documented in this encounter [facility] 05-11-2022 Miscellaneous Notes Patient phones requesting refills as follows: Requested Prescriptions Pending Prescriptions Disp Refills alendronate (FOSAMAX) 70 mg tablet 12 tablet 1 Sig: Take 1 tablet by mouth one time a week. Take with a full glass of water, on an empty stomach; do NOT lie down for 30minutes. SHABBIR 03/17/22 NOV 09/22/22 Please review and advise. Vane Bhatti LPN documented in this encounter [facility] 03-30-2022 Miscellaneous Notes [facility]illed to [facility] on 03/26/22 for 3 month supply. Pt notified of this via [employer]. Agatha Suarez Ma documented in this encounter [facility] 03-26-2022 Miscellaneous Notes Patient phones requesting refills as follows: Pending Prescriptions Disp Refills ATORVASTATIN 10 MG TABLET 90 tablet 0 Sig: TAKE 1 TABLET BY MOUTH ONCE DAILY AT BEDTIME FOR CHOLESTEROL JAMES: Yes SHABBIR 03/17/22 NOV 09/22/22 Please review and advise. Vane Bhatti LPN documented in this encounter [facility] 03-17-2022 History of Presen t illness Narrative Chief Complaint Patient presents with: F/U 6 months HPI Jenny Pacheco is a 66 year old female who presents here today for Above Complaints.. Patient has been following up with Dr. Gillespie for right hydronephrosis and hydroureter without obstructing calculus as well as thickening of right bladder wall which was found on CT scan last month at [facility]. Went in for RLQ abdominal pain which has since resolved. Patient had cystoscopy and biopsy was normal. Renal US completed 2 days ago and is awaiting results still. Denies abdominal pain or urinary symptoms today. Patient needs refill on Trimo gastelum jelly for pessary. Applies once per month and changes pessary every other month. DXA showed continued osteoporosis. Started on Fosamax weekly along with Citracal. Denies side effects from medication. Walking several days per week along with yoga for exercise. Discussed 2,000 units of vitamin D and 1,200 units of calcium per day. Taking synthroid without change in thyroid symptoms or side effects. Does not have living will or DPOA. Would like forms today. Past medical history, appointments, medications, allergies reviewed. Previous Medical History PAST MEDICAL HISTORY Diagnosis Date Arthritis Degenerative arthritis of thumb, right 09/04/2018 Disabling back pain 11/23/2013 Diverticulosis of colon (without mention of hemorrhage) Family history of breast cancer in sister 11/23/2013 History of transfusion Hyperlipidemia 05/28/2011 Hyperparathyroidism (HCC) 08/20/2010 Multinodular goiter 11/23/2013 Osteopenia Osteoporosis 05/09/2010 Other kyphoscoliosis and scoliosis Pessary maintenance Karolina Malik Unspecified hypothyroidism Vitamin D deficiency 05/12/2010 Previous Surgical History PAST SURGICAL HISTORY Procedure Laterality Date BACK SURGERY HX 1969 osorio nubia placement-scoliosis COLONOSCOPY FLX DX W/COLLJ SPEC WHEN PFRMD 07/07/2010 Colonoscopy COLONOSCOPY SCRN NOT HIGH RISK 09/09/2020 10 yr interval EYE SURGERY HX FNA WITH IMAGING 06/28/2011 U/S FNA right thyroid nodule-benign LIG/TRNSXJ FLP TUBE ABDL/VAG APPR UNI/BI Tubal ligation PAST SURGICAL HISTORY OF Dental TRANSFUSION BLOOD/BLOOD COMPONENTS 1969 Family History FAMILY HISTORY Problem Relation Age of Onset Hypertension Mother Diabetes Mother DM II other (Parkinson's Disease) Father Diabetes Sister type 1 DM Hypertension Sister Cancer Sister Throat (vocal cords) Breast Cancer Sister 58 BRCA negative Alcohol/Drug Brother Stroke Maternal Grandmother Lung Cancer Maternal Grandfather Lung Cancer Paternal Grandfather No Known Problems Daughter No Known Problems Daughter No Known Problems Daughter Cancer Maternal Aunt unsure what kind Patient Allergies ALLERGIES No Known Allergies Current Medications Current Outpatient Medications on File Prior to Visit Medication Sig alendronate (FOSAMAX) 70 mg tablet Take 1 tablet by mouth one time a week. Take with a full glass of water, on an empty stomach; do NOT lie down for 30minutes. levothyroxine (SYNTHROID) 88 mcg tablet Take 1 tablet by mouth once daily. Take on empty stomach. atorvastatin (LIPITOR) 10 mg tablet Take 1 tablet by mouth daily at bedtime. For cholesterol. Oxyquinoline-Na Lauryl Sulfate (TRIMO-GASTELUM JELLY) 0.025-0.01 % gel Use 1 Applicatorful vaginally two times a week. as needed or for insertion of pessary CYANOCOBALAMIN, VITAMIN B-12, (VITAMIN B-12 ORAL) Take 1 tablet by mouth once daily. Calcium Carb-Cholecalciferol (CALCIUM 600 WITH VITAMIN D3) 600 (1,500)-200 mg-unit ORAL Tab Take one(1) tablet twice daily. OTC NUTRITIONAL SUPPLEMENT Multi-vitamin, Take one(1) tablet daily. No current facility-administered medications on file prior to visit. Social History Social History Tobacco Use Smoking status: Former Smoker Packs/day: 0.50 Years: 20.00 Pack years: 10.00 Smokeless tobacco: Never Used Tobacco comment: quit smoking 1988 Vaping Use Vaping Use: Never used Substance Use Topics Alcohol use: Yes Comment: rare, less than yearly Drug use: Never Review of Symptoms REVIEW OF SYSTEMS GENERAL: No weight loss, malaise or fevers GI: No nausea, vomiting, or diarrhea : No history of dysuria, frequency or incontinence COAL DELIVERER: Negative for abnormal vaginal bleeding, abnormal vaginal discharge SKIN: Negative for lesions, rash, and itching EXAM: BP 118/80 Pulse 72 Temp 37 C (98.6 F) (Left Tympanic) Resp 14 Wt 64.4 kg (142 lb) LMP 02/23/2006 BMI 25.36 kg/m General Appearance: Well appearing, alert, in no acute distress, well-hydrated, well nourished.. Skin: Skin color, texture, turgor normal, no suspicious rashes or lesions. Lungs: Lungs clear to auscultation. No wheezing, rhonchi, rales.. Heart: RRR without murmur, gallop, or rubs. No ectopy. Abdomen: Normal abdominal exam, Abdomen soft, non-tender. Bowel sounds normal. No masses, organomegaly. Extremities: No deformities, edema, skin discoloration, clubbing or cyanosis. Good capillary refill. . Health Maintenance List PNEUMOCOCCAL: 65+(1 - PCV) due on 2020 ADVANCE DIRECTIVE DISCUSSION Never done COVID-19 VACCINE(4 - Booster for Pfizer series) due on 11/11/2021 INFLUENZA(1) due on 05/06/2022 MAMMOGRAM due on 08/13/2022 ANNUAL PCP TEAM CHRONIC DISEASE VISIT due on 09/16/2022 DEPRESSION SCREENING due on 03/17/2023 DIABETES SCREEN due on 03/12/2025 LIPID SCREEN due on 04/07/2026 COLORECTAL CANCER SCREENING due on 09/09/2030 DTAP,TDAP,TD(5 - Td or Tdap) due on 09/23/2031 BONE DENSITY Completed HEPATITIS C SCREENING Completed SHINGRIX VACCINE Completed Data reviewed Component Latest Ref Rng & Units 03/12/2022 Protein, Total 6.3 - 8.0 g/dL 7.3 Albumin 3.9 - 4.9 g/dL 4.8 Calcium 8.5 - 10.2 mg/dL 10.0 Bilirubin, Total 0.2 - 1.3 mg/dL 0.6 Alkaline Phosphatase 34 - 123 U/L 65 AST 13 - 35 U/L 26 ALT 7 - 38 U/L 23 Glucose 74 - 99 mg/dL 107 (H) BUN 7 - 21 mg/dL 13 Creatinine 0.58 - 0.96 mg/dL 0.68 Sodium 136 - 144 mmol/L 139 Potassium 3.7 - 5.1 mmol/L 4.4 Chloride 97 - 105 mmol/L 101 CO2 22 - 30 mmol/L 27 Anion Gap 9 - 18 mmol/L 11 eGFR >=60 mL/min/1.73m 96 WBC 3.70 - 11.00 k/uL 6.41 RBC 3.90 - 5.20 m/uL 4.64 Hemoglobin 11.5 - 15.5 g/dL 14.0 Hematocrit 36.0 - 46.0 % 43.0 MCV 80.0 - 100.0 fL 92.7 MCH 26.0 - 34.0 pg 30.2 MCHC 30.5 - 36.0 g/dL 32.6 RDW-CV 11.5 - 15.0 % 12.5 Platelet Count 150 - 400 k/uL 257 MPV 9.0 - 12.7 fL 10.8 Absolute nRBC <0.01 k/uL <0.01 TSH 0.270 - 4.200 mIU/L 1.720 Vitamin D 25 Hydroxy 31.0 - 80.0 ng/mL 44.6 Component Latest Ref Rng & Units 04/07/2021 Cholesterol, Total <200 mg/dL 165 Triglyceride <150 mg/dL 120 HDL Cholesterol >39 mg/dL 47 LDL Cholesterol <100 mg/dL 94 Non HDL Cholesterol <130 mg/dL 118 Fasting Time hrs 15 VLDL Cholesterol <30 mg/dL 24 TC:HDL Ratio <5.10 3.51 LDL:HDL Ratio <2.54 2.00 ASSESSMENT/PLAN: 1. Hydronephrosis, right - ICD9: 591, ICD10: N13.30 (primary diagnosis) Obtain records from Dr. Gillespie's office and will await their report on recent imaging. Pain and urinary symptoms have resolved. Red flags for re-assessment reviewed with patient in detail. 2. Bladder wall thickening - ICD9: 596.89, ICD10: N32.[address] Gillespie's office. 3. Acquired hypothyroidism - ICD9: 244.9, ICD10: E03.9 - Instructed patient on importance of taking on an empty stomach either first thing in the morning or at bedtime. - continue current dose of Synthroid 0.088 mg 4. Hyperlipidemia with target LDL less than 130 - ICD9: 272.4, ICD10: E78.5 - good control - Continue current medication. - Encouraged following a low fat, low cholesterol diet. - Discussed the benefits of regular aerobic exercise and weight loss. 5. Need for COVID-19 vaccine - ICD9: V04.89, ICD10: Z23 - EquityMetrix COVID-19 VACCINE, AGE 12+ YR (HARVEY TOP) 6. Need for pneumococcal vaccine - ICD9: V03.82, ICD10: Z23 - PNEUMOCOCCAL VACCINE (PREVNAR 20) 7. Advance directive discussed with patient - ICD9: V65.49, ICD10: Z71.89 Forms sent home with patient to complete. Dianne Ross MD documented in this encounter [facility] 02-23-2022 Miscellaneous Notes Patient has been identified by name and date of : Yes Patient phones for refill(s): Pending Prescriptions Disp Refills ALENDRONATE 70 MG TABLET 12 tablet 1 Sig: Take 1 tablet by mouth one time a week. Take with a full glass of water, on an empty stomach; do NOT lie down for 30minutes. JAMES: No Date of last office visit in primary care: SHABBIR 09/16/2021 Appointment scheduled for 03/17/2022 Last 2 Encounter Wt Readings: Date: Wt: 09/16/2021 68 kg (150 lb) 06/12/2021 63.6 kg (140 lb 3.2 oz) Please advise. Thank you. TIMMY Dyson documented in this encounter [facility] 02-03-2022 Miscellaneous Notes SHABBIR: 09/16/2021 Last refill: 04/09/2020 QTY: 90 Refills: 3 documented in this encounter [facility] documented as of this encounter (statuses as of 02/03/2022) [facility] History of Past illness Narrative* Problem Noted Date Resolved Date Disabling back pain 11/23/2013 03/09/2018 Hyperparathyroidism 08/20/2010 03/09/2018 Vitamin D deficiency 05/12/2010 03/09/2018 documented as of this encounter (statuses as of 02/23/2022) [facility] History of Past illness Narrative* Problem Noted Date Resolved Date Disabling back pain 11/23/2013 03/09/2018 Hyperparathyroidism 08/20/2010 03/09/2018 Vitamin D deficiency 05/12/2010 03/09/2018 documented as of this encounter (statuses as of 03/17/2022) [address]21-2014 History of Past illness Narrative* Problem Noted Date Resolved Date Disabling back pain 11/23/2013 03/09/2018 Hyperparathyroidism 08/20/2010 03/09/2018 Vitamin D deficiency 05/12/2010 03/09/2018 documented as of this encounter (statuses as of 03/26/2022) [address]21-2014 History of Past illness Narrative* Problem Noted Date Resolved Date Disabling back pain 11/23/2013 03/09/2018 Hyperparathyroidism 08/20/2010 03/09/2018 Vitamin D deficiency 05/12/2010 03/09/2018 documented as of this encounter (statuses as of 03/30/2022) [address]21-2014 History of Past illness Narrative* Problem Noted Date Resolved Date Disabling back pain 11/23/2013 03/09/2018 Hyperparathyroidism 08/20/2010 03/09/2018 Vitamin D deficiency 05/12/2010 03/09/2018 documented as of this encounter (statuses as of 05/11/2022) [place] [id number] History of Past illness Narrative* Problem Noted Date Resolved Date Disabling back pain 11/23/2013 03/09/2018 Hyperparathyroidism 08/20/2010 03/09/2018 Vitamin D deficiency 05/12/2010 03/09/2018 documented as of this encounter (statuses as of 06/29/2022) [place] [address]21-2014 History of Past illness Narrative* Problem Noted Date Resolved Date Disabling back pain 11/23/2013 03/09/2018 Hyperparathyroidism 08/20/2010 03/09/2018 Vitamin D deficiency 05/12/2010 03/09/2018 documented as of this encounter (statuses as of 08/11/2022) [place] [address]21-2014 History of Past illness Narrative* Problem Noted Date Resolved Date Disabling back pain 11/23/2013 03/09/2018 Hyperparathyroidism 08/20/2010 03/09/2018 Vitamin D deficiency 05/12/2010 03/09/2018 documented as of this encounter (statuses as of 08/16/2022) [place] [address]21-2014 History of Past illness Narrative* Problem Noted Date Resolved Date Disabling back pain 11/23/2013 03/09/2018 Hyperparathyroidism 08/20/2010 03/09/2018 Vitamin D deficiency 05/12/2010 03/09/2018 documented as of this encounter (statuses as of 08/17/2022) [address]21-2014 History of Past illness Narrative* Problem Noted Date Resolved Date Disabling back pain 11/23/2013 03/09/2018 Hyperparathyroidism 08/20/2010 03/09/2018 Vitamin D deficiency 05/12/2010 03/09/2018 documented as of this encounter (statuses as of 09/22/2022) [address]21-2014 History of Past illness Narrative* Problem Noted Date Resolved Date Disabling back pain 11/23/2013 03/09/2018 Hyperparathyroidism 08/20/2010 03/09/2018 Vitamin D deficiency 05/12/2010 03/09/2018 documented as of this encounter (statuses as of 09/23/2022) [address]21-2014 History of Past illness Narrative* Problem Noted Date Resolved Date Disabling back pain 11/23/2013 03/09/2018 Hyperparathyroidism 08/20/2010 03/09/2018 Vitamin D deficiency 05/12/2010 03/09/2018 documented as of this encounter (statuses as of 12/27/2022) [facility] History of Past illness Narrative* Problem Noted Date Diagnosed Date Resolved Date Disabling back pain 11/23/2013 03/09/20 18 Hyperparathyroidism 08/20/2010 03/09/20 18 Vitamin D deficiency 05/12/201005 018 documented as of this encounter (statuses as of 06/21/2023) [address]21-2014 History of Past illness Narrative* Problem Noted Date Diagnosed Date Resolved Date Disabling back pain 11/23/2013 03/09/20 18 Hyperparathyroidism 08/20/2010 03/09/20 18 Vitamin D deficiency 05/12/2010052 018 documented as of this encounter (statuses as of 06/28/2023) [address]21-2014 History of Past illness Narrative* Problem Noted Date Diagnosed Date Resolved Date Disabling back pain 11/23/2013 03/09/20 18 Hyperparathyroidism 08/20/2010 03/09/20 18 Vitamin D deficiency 05/12/201005 018 documented as of this encounter (statuses as of 06/28/2023) [facility] History of Past illness Narrative* Problem Noted Date Diagnosed Date Resolved Date Disabling back pain 11/23/2013 03/09/20 18 Hyperparathyroidism 08/20/2010 03/09/20 18 Vitamin D deficiency 05/12/2010 018 documented as of this encounter (statuses as of 07/10/2023) [facility] History of Past illness Narrative* Problem Noted Date Diagnosed Date Resolved Date Disabling back pain 11/23/2013 03/09/20 18 Hyperparathyroidism 08/20/2010 03/09/20 18 Vitamin D deficiency 05/12/2010 018 documented as of this encounter (statuses as of 07/21/2023) [facility] Hydronephrosis, right- Primary Hydronephrosis Bladder wall thickening Other specified disorders of bladder Acquired hypothyroidism Unspecified hypothyroidism Hyperlipidemia with target LDL less than 130 Other and unspecified hyperlipidemia Need for COVID-19 vaccine Need for pneumococcal vaccine Need for prophylactic vaccination against streptococcus pneumoniae (pneumococcus) Advance directive discussed with patient Other specified counseling [facility] Diagnosis Hyperlipidemia with target LDL less than 130 Other and unspecified hyperlipidemia [facility] Diagnosis Hyperlipidemia with target LDL less than 130 Other and unspecified hyperlipidemia [facility] Diagnosis Acquired hypothyroidism- Primary Unspecified hypothyroidism Hyperlipidemia with target LDL less than 130 Other and unspecified hyperlipidemia Age-related osteoporosis without current pathological fracture Senile osteoporosis Impaired fasting glucose Hydronephrosis, right Hydronephrosis Awareness of heart beat Palpitations [facility] Diagnosis Hyperkalemia- Primary Hyperpotassemia [facility] Diagnosis Pessary maintenance- Primary Fitting and adjustment of other device Cystocele, midline Postmenopausal atrophic vaginitis Need for influenza vaccination Need for prophylactic vaccination and inoculation against influenza [facility] Diagnosis Hyperlipidemia with target LDL less than 130 Other and unspecified hyperlipidemia [facility] Diagnosis Encounter for screening mammogram for malignant neoplasm of breast Other screening mammogram documented in this encounter [facility] for referral (narrative)* Diagnostic Procedure Only (Routine) - Closed Specialty Diagnoses / Procedures Referred By Contac t Referred To Contact [facility] Diagnoses Encounter for screening mammogram for malignant neoplasm of breast Procedures VIRY SCREENING SCREENING MAMMOGRAPHY BI 2-VIEW BREAST INC Aarti Berg APRN.CNP [address] [place] [address] [facility] [address] [place] [address] Referral ID Status Reason Start Date Expiration Date V isits Requested Visits Authorized [id number] Closed Auto-Generate d Referral 06/29/2022 2023 [facility] Diagnostic Procedure Only (Routine) - Closed Specialty Diagnoses / Procedures Referred By Claude vines Referred To Contact [facility] Diagnoses Encounter for screening mammogram for malignant neoplasm of breast Procedures VIRY SCREENING SCREENING MAMMOGRAPHY BI 2-VIEW BREAST INC Aarti Berg APRN.MAK [address] [place] [address] [facility] [address] [place] [address] Referral ID Status Reason Start Date Expiration Date V isits Requested Visits Authorized [id number] Closed Auto-Generate d Referral 06/29/2022 2023 1 1 [facility] Summary Purpose Family History No Family History Records FoundNo Family History Records Found Advance Directives No Advanced Directives Records FoundDocuments on File Type Date Recorded Patient Doper Expl anation Advance Directive(s) 09/09/2020 7:33 AM Advance Directive(s) 08/18/2020 12:14 PM Additional Source Comments INFORMATION SOURCE (unrecogn ized section and content) DATE CREATED AUTHOR AUTHOR'S ORGANIZ ATION 08/18/2023 [facility] Source Comments (unrecognize d section and content) In the event this informatio n is protected by the Federal Confidentiality of Alcohol and Drug Abuse Patient Records regulations: The Federal rules restrict any use of the information to criminally investigate or prosecute any alcohol or drug abuse patient.[facility] the event this information is protected by the Federal Confidentiality of Alcohol and Drug Abuse Patient Records regulations: The Federal rules restrict any use of the information to criminally investigate or prosecute any alcohol or drug abuse patient.[facility] the event this information is protected by the Federal Confidentiality of Alcohol and Drug Abuse Patient Records regulations: The Federal rules restrict any use of the information to criminally investigate or prosecute any alcohol or drug abuse patient.[facility] the event this information is protected by the Federal Confidentiality of Alcohol and Drug Abuse Patient Records regulations: The Federal rules restrict any use of the information to criminally investigate or prosecute any alcohol or drug abuse patient.[facility] the event this information is protected by the Federal Confidentiality of Alcohol and Drug Abuse Patient Records regulations: The Federal rules restrict any use of the information to criminally investigate or prosecute any alcohol or drug abuse patient.[facility] the event this information is protected by the Federal Confidentiality of Alcohol and Drug Abuse Patient Records regulations: The Federal rules restrict any use of the information to criminally investigate or prosecute any alcohol or drug abuse patient.[facility] the event this information is protected by the Federal Confidentiality of Alcohol and Drug Abuse Patient Records regulations: The Federal rules restrict any use of the information to criminally investigate or prosecute any alcohol or drug abuse patient.[facility] the event this information is protected by the Federal Confidentiality of Alcohol and Drug Abuse Patient Records regulations: The Federal rules restrict any use of the information to criminally investigate or prosecute any alcohol or drug abuse patient.[facility] the event this information is protected by the Federal Confidentiality of Alcohol and Drug Abuse Patient Records regulations: The Federal rules restrict any use of the information to criminally investigate or prosecute any alcohol or drug abuse patient.[facility] the event this information is protected by the Federal Confidentiality of Alcohol and Drug Abuse Patient Records regulations: The Federal rules restrict any use of the information to criminally investigate or prosecute any alcohol or drug abuse patient.[facility] the event this information is protected by the Federal Confidentiality of Alcohol and Drug Abuse Patient Records regulations: The Federal rules restrict any use of the information to criminally investigate or prosecute any alcohol or drug abuse patient.[facility] the event this information is protected by the Federal Confidentiality of Alcohol and Drug Abuse Patient Records regulations: The Federal rules restrict any use of the information to criminally investigate or prosecute any alcohol or drug abuse patient.[facility] the event this information is protected by the Federal Confidentiality of Alcohol and Drug Abuse Patient Records regulations: The Federal rules restrict any use of the information to criminally investigate or prosecute any alcohol or drug abuse patient.[facility] the event this information is protected by the Federal Confidentiality of Alcohol and Drug Abuse Patient Records regulations: The Federal rules restrict any use of the information to criminally investigate or prosecute any alcohol or drug abuse patient.[facility] Center[facility] the event this information is protected by the Federal Confidentiality of Alcohol and Drug Abuse Patient Records regulations: The Federal rules restrict any use of the information to criminally investigate or prosecute any alcohol or drug abuse patient.[facility] Center[facility] the event this information is protected by the Federal Confidentiality of Alcohol and Drug Abuse Patient Records regulations: The Federal rules restrict any use of the information to criminally investigate or prosecute any alcohol or drug abuse patient.[facility] CenterIn the event this information is protected by the Federal Confidentiality of Alcohol and Drug Abuse Patient Records regulations: The Federal rules restrict any use of the information to criminally investigate or prosecute any alcohol or drug abuse patient.[facility] CenterIn the event this information is protected by the Federal Confidentiality of Alcohol and Drug Abuse Patient Records regulations: The Federal rules restrict any use of the information to criminally investigate or prosecute any alcohol or drug abuse patient.[facility] Reason for Visit (unrecogniz ed section and content) Reason Onset Date Comments Refill Request 02/22/2022 Reason Comments F/U 6 months Reason Comments Refill Request Reason Onset Date Comments Refill Request 03/29/2022 Reason Onset Date Comments Refill Request 05/11/2022 Reason Onset Date Comments Refill Request 06/29/2022 Reason Onset Date Comments Refill Request 08/11/2022 Reason Comments Results Reason Comments Follow Up 6 month Reason Onset Date Comments Refill Request 12/27/2022 Reason Onset Date Comments Pessary Immunizations 06/21/2023 Flu vaccination Reason Onset Date Comments Refill Request 06/25/2023 Reason Onset Date Comments Refill Request 07/21/2023 Care Teams (unrecognized sec tion and content) Research Computing Specialist Relationship Specialty Start Date End Date Dianne Ross MD [address] [place], [place] [id number] PCP - General Family Practice 03/12/21 Research Computing Specialist Relationship Specialty Start Date End Date Dianne Ross MD [address] [place] [address] PCP - General Family Practice 03/12/21 Research Computing Specialist Relationship Specialty Start Date End Date Dianne Ross MD [address] [facility] [place] [address] PCP - General Family Practice 03/12/21 Research Computing Specialist Relationship Specialty Start Date End Date Dianne Ross MD [address] [place] [address] PCP - General Family Practice 03/12/21 Research Computing Specialist Relationship Specialty Start Date End Date Dianne Ross MD [address] [place] [address] PCP - General Family Medicine 03/12/21 Research Computing Specialist Relationship Specialty Start Date End Date Dianne Ross MD [address] [place] [address] PCP - General Family Medicine 03/12/21 Research Computing Specialist Relationship Specialty Start Date End Date Dianne Ross MD [address] [place] [address] PCP - General Family Medicine 03/12/21 Research Computing Specialist Relationship Specialty Start Date End Date Dianne Ross MD [address] [place] [address] PCP - General Family Medicine 03/12/21 Research Computing Specialist Relationship Specialty Start Date End Date Dianne Ross MD [address] [place] [address] PCP - General Family Medicine 03/12/21 Research Computing Specialist Relationship Specialty Start Date End Date Dianne Ross MD [address] [place] [address] PCP - General Family [facility] 03/12/21 Research Computing Specialist Relationship Specialty Start Date End Date Dianne Ross MD [address] [place], [place] [id number] PCP - General [facility] 03/12/21 Research Computing Specialist Relationship Specialty Start Date End Date Dianne Ross MD [address] [place], [place] [id number] PCP - General Family [facility] 03/12/21 FOR RECORDS PERTAINING TO PATIENTS WHO ARE OR HAVE BEEN ENROLLED IN A CHEMICAL DEPENDENCY/SUBSTANCEABUSE PROGRAM, SOME INFORMATION MAY BE OMITTED. This clinical summary was aggregated from multiple sources. Caution should be exercised in using it in the provision of clinical care. This summary normalizes information from multiple sources, and as a consequence, information in this document may materially change the coding, format and clinical context of patient data. In addition, data may be omitted in some cases. CLINICAL DECISIONS SHOULD BE BASED ON THE PRIMARY CLINICAL RECORDS. [facility] [employer] [facility]. provides no warranty or guarantee of the accuracy or completeness of information in this document.
== END | disposition home or self-care (01) ==
LOC: US 07:25
PROVIDERS: PCP Family Medicine; Referring Provider Urology; Visit Provider Urology
DX: N13.30 Unspecified hydronephrosis (principal)
CPT/HCPCS: 76770

== ENCOUNTER → 2024-11-06 | Outpatient (CLI) | payer MEDICARE, BC, SELFPAY ==
--- NOTE | 2024-11-06 12:19 | US_ITS ---
EXAM: US Retroperitoneal Limited, Renal CLINICAL INDICATION: TECHNIQUE: Real-time limited ultrasound of the retroperitoneum with image documentation. COMPARISON: No relevant prior studies available. FINDINGS: RIGHT KIDNEY: 1.8 cm cyst of the right renal inferior pole. No stones. No hydronephrosis. The right kidney measures 8.6 x 4.3 x 4.0 cm. LEFT KIDNEY: Unremarkable. No stones. No hydronephrosis. The left kidney measures 8.9 x 4.3 x 3.7 cm. OTHER FINDINGS: Prevoid volume 286 cc. US/Kidney and Bladder IMPRESSION: No acute findings in the retroperitoneum. Reading [facility]
== END | disposition home or self-care (01) ==
LOC: US 12:18
PROVIDERS: PCP Family Medicine; Referring Provider Urology; Visit Provider Urology
DX: N13.30 Unspecified hydronephrosis (principal)
CPT/HCPCS: 76770